=== PATIENT | female | born 1980 ===

== ENCOUNTER 2019-07-01 05:59 | Inpatient (IN) | payer MEDICAID, OTHER ==
[~2019-07-01 05:59] MED LIST: Buffered Lidocaine 1% SYRIN* 1 ML/SYRINGE INTRADERM ONE
[2019-07-01] MEDS ORDERED: Sodium Citrate/Citric Acid* 15 ML UDC PO ONE (06:00)
[2019-07-01] MEDS ORDERED: Lactated Ringers 1000 ML Bag* 1,000 ML IV SCH ×2 (06:00→10:00)
--- OUTSIDE RECORDS SUMMARY | 2019-07-01 06:01 | XMS REPORT | Continuity of Care Document ---
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 [phone] Problems Description No Information Available Social History Type Date Description Comments Sex Unknown Tobacco Use Start: Unknown Never Smoked Cigarettes Smoking Status Reviewed: 02/04/19 Never Smoked Cigarettes ETOH Use Never used alcohol Recreational Drug Use Denies Drug Use Seat Belt/Car Seat Always uses car seat Allergies, Adverse Reactions, Alerts Description No Known Drug Allergies Medications Active Medications SIG Qnty Indications Ordering Provider Date Vitamin Unknown History Medications No Active Medications Unknown 02/04/2019 - 02/09/2019 Immunizations CPT Code Status Date Vaccine Lot # [id number] Given 06/04/2019 Tetnus, Diptheria Toxoids And Acellular Pertussis, [id number] PT > 7Yrs Old Vital Signs Date Vital Result Comment 02/09/2019 9:33am BP Systolic 100 mmHg BP Diastolic 52 mmHg Height 57 inches 4'9" Weight 136.00 lb BMI (Body Mass Index) 29.4 kg/m2 Last Menstrual Period [id number] 3 Parity 2 02/04/2019 2:22pm BP Systolic 122 mmHg BP Diastolic 64 mmHg Weight 139.00 lb Last Menstrual Period 9664984 3 Parity 2 Results Test Acquired Date Facility Test Result H/L Range Note Xray 06/22/2019 [facility] <pending> egnancy >14WKS Laboratory test 05/13/2019 [facility] Glucose 1 HR 115 mg/dL Normal 70-160 1, 2 [place] [address] Post Prandial [phone] CBC With No 05/13/2019 [facility] White Blood 7.2 Normal 3.5- 10.8 [place] [address] Count 10^3/uL [phone] Red Blood Count 3.75 10^6/uL Normal 3.70-4.87 Hemoglobin 11.5 g/dL Low 12.0-16.0 Hematocrit 33 % Low 35-47 Mean Corpuscular Volume 88 fL Normal 80-97 Mean Corpuscular Hemoglobin 31 pg Normal 27-31 Mean Corpuscular HGB Conc 35 g/dL Normal 31-36 Red Cell Distribution Width 14 % Normal 10-15 Platelet Count 289 10^3/uL Normal 150-450 Mean Platelet Volume 7.8 fL Normal 7.4-10.4 Laboratory test 05/13/2019 [facility] Rubella Screen Equivocal Immune [address] [place] [address] IgG [phone] Varicella Zoster 05/13/2019 [facility] Varicella-Zost Positive [address] [place] [address] er IgG [phone] Antibody Varicella IgG Antibody Index 1.7 5 Drug Screen 04/01/2019 [facility] Urine None Detected None Detect 6 [place] [address] Hydrocodone Clinic [phone] Screen Urine Oxycodone Screen None Detected None Detect Urine Fentanyl Screen None Detected None Detect Urine Methadone Screen None Detected None Detect Urine Buprenorphine Screen None Detected None Detect Urine Amphetamine Screen None Detected None Detect Urine Barbiturates Screen None Detected None Detect Urine Benzodiazepine Screen None Detected None Detect Urine Cannabinoids Screen None Detected None Detect Urine Cocaine Screen None Detected None Detect Urine Opiates Screen None Detected None Detect Urine Phencyclidine Screen None Detected None Detect 7 Urine Culture And 03/04/2019 [facility] Urine Culture SEE RESULT 8, 9 [place] [address] BELOW [phone] Laboratory test 02/09/2019 [facility] Cytology SEE RESULT 10, 11 [place] [address] BELOW [phone] GC/Chlamydia Dna 02/09/2019 [facility] GCCHL (SEE NOTE) [address] [place] [address] Disclaimer [phone] Chlamydia trachomatis Ken Negative Negative Neisseria gonorrhoeae (GC) Ken Negative Negative Panorama Test 02/04/2019 [facility] Report Summary See Notes Normal 13 Report Note See Notes Normal Trisomy 13 Age-Based Risk Fraction 03/1209 Normal Trisomy 13 Risk Score Text <1/10,000 (<0.01 <SEE NOTE> Normal 14 Trisomy 13 Risk Score Fraction <1/10516 Normal Trisomy 13 Result Text Low Risk Normal Trisomy 13 Result Comments See Notes Normal Trisomy 18 Age-Based Risk Fraction 1/393 Normal Trisomy 18 Risk Score Text <1/10,000 (<0.01 <SEE NOTE> Normal 15 Trisomy 18 Risk Score Fraction <1/25648 Normal Trisomy 18 Result Text Low Risk Normal Trisomy 18 Result Comments See Notes Normal Trisomy 21 Age-Based Risk Fraction 1/131 Normal Trisomy 21 Risk Score Text <1/10,000 (<0.01 <SEE NOTE> Normal 16 Trisomy 21 Risk Score Fraction <1/46727 Normal Trisomy 21 Result Text Low Risk Normal Trisomy 21 Result Comments See Notes Normal Monosomy X Age-Based Risk Fraction 1/568 Normal Monosomy X Risk Score <0.01 % Normal Monosomy X Risk Score Text <1/10,000 (<0.01 <SEE NOTE> Normal 17 Monosomy X Risk Score Fraction <1/79838 Normal Monosomy X Result Text Low Risk Normal Monosomy X Result Comments See Notes Normal Triploidy Result Text Low Risk Normal Triploidy Result Comments See Notes Normal Gender of Fetus Male Fraction (in %) 8.7 % Fraction 8.7% Footnotes See Notes 18 Boiler Plate Text See Notes 19 References See Notes 20 Approvals See Notes 21 Contacts See Notes 22 Afp,Screen Maternal 02/04/2019 [facility] Collection Date [address] [place] [address] [phone] Maternal Date of 80 Calculated Age At ELYSSA 38 years Maternal Weight 139 lbs Insulin Dependent Diabetes No Current Cigarette Smoking Stat non-Smoker Patient Race non-Black Number of Fetuses 1 Number of Chorions Monochorionic Ivf No Prev Preg w/Neural Tube Defect No Patient/Father of Baby Has NTD No Initial Or Repeat Testing Initial testing ELYSSA by U/S Scan 07/18/19 24 Physician GA On Collection by U/S SEE BELOW wk,d 25 GA Used In Risk Estimate Scan estimate Afp 25.5 ng/mL Interpretation See Comment 26 Additional Comments See Comment 27 Recommended Follow Up None. 28 General Test Information See Comment 29 Recalculated Maternal Serum Sc See Comment 30 Neural Tube Defect Estimate SEE BELOW 31 Afp MoM 0.66 MoM <2.50 32 HIV 1&2 p24 02/04/2019 [facility] HIV 4th Nonreactive Nonreactive Screen [place] [facility] [phone] Lead 02/04/2019 [facility] Lead,Venous, B 1.4 g/dL 0.0-4.9 [address] [place] [address] [phone] Venous/Capillary Venous Submitting Laboratory Phone [phone] Type And Screen 02/04/2019 [facility] Patient [place] [address] [phone] Antibody Screen NEGATIVE CBC With No 02/04/2019 [facility] White Blood 7.2 10^3/uL Normal 3.5-10.8 [place] [address] Count [phone] Red Blood Count 4.16 10^6/uL Normal 3.70-4.87 Hemoglobin 12.9 g/dL Normal 12.0-16.0 Hematocrit 38 % Normal 35-47 Mean Corpuscular Volume 90 fL Normal 80-97 Mean Corpuscular Hemoglobin 31 pg Normal 27-31 Mean Corpuscular HGB Conc 34 g/dL Normal 31-36 Red Cell Distribution Width 14 % Normal 10-15 Platelet Count 333 10^3/uL Normal 150-450 Mean Platelet Volume 7.9 fL Normal 7.4-10.4 PNL No 02/04/2019 [facility] Rubella Screen Equivocal Immune [address] [place] [address] IgG [phone] Hemoglobin A1c 5.3 % Normal 4.0-5.6 36 Hepatitis B Surface Antigen Nonreactive Nonreactive 37 Syphillis Igg W/Reflex RPR Negative Negative 38 1 [id number] 2 [id number] 3 [id number] 4 Results suggest response to immunization or prior exposure to the virus. REFERENCE VALUE Vaccinated: Positive (>=1.1 AI) Unvaccinated: Negative (<=0.8 AI) 5 Test Performed by: [facility] [address] [place] [address] Refinisher: Sampson Felix M.D. Ph.D.; CLIA# [id number] 6 [id number] The specimen was tested at the listed cutoffs: Drug Class Test level (ng/mL) Hydrocodone 300 Oxycodone 100 Fentanyl 1 Methadone 150 Buprenorphine 5 Amphetamines 500 Barbiturates 200 Benzodiazepines 200 Cocaine 150 Cannabinoids 50 Opiates 300 PCP 25 Specimen was received without chain of custody. Results should be used for medical purposes only. 8 [id number] 9 SEE RESULT BELOW Name: CHRISTY LAWRENCE : [address]: Tayo Keane DO Acct: [id number] Unit: [id number] AGE: 38 Location: [facility] Re03/04/19 SEX: F Status: REG REF SPEC: [id number] BETO: 03/04/[address]: Tayo Keane DO REQ: [id number] RECD: 03/04/19 STATUS: COMP _ SOURCE: URINE SPDESC: ORDERED: Urine Culture COMMENTS: [id number] Urine Source: Random Procedure Result Reported Site Urine Culture Final 03/05/19- 1449 ML No Growth (<1,000 CFU/mL) * ML - Main Lab . END OF REPORT DEPARTMENT OF PATHOLOGY, [address] [place] [address] Abdullahi Deng M.D. Director [facility] # [id number] 10 [id number] 11 SEE RESULT BELOW Name: CHRISTY LAWRENCE : [address]: Caroline Grande [facility] Acct: [id number] Unit: [id number] AGE: 38 Location: [facility] Re02/09/19 SEX: F Status: REG REF SPEC: [id number] BETO: 02/09/19-[address]: Caroline Grande [facility] REQ: [id number] RECD: 02/09/19 STATUS: SOUT _ ORDERED: TP IMAGE ANALYS, HPV/Thin Prep COMMENTS: [id number] FINAL DIAGNOSIS Negative for Intraepithelial lesion or Malignancy Shift in melinda suggestive of bacterial vaginosis HPV RESULTS Date Time Test Result Flag (u) Normal Range 02/09/19 1028 HPV KEN Negative Negative The high-risk HPV types detected by the assay include: 16, 18, 31, 33, 35, 39, 45, 51, 52, 56, 58, 59, 66, and 68. SPECIMEN(S) RECEIVED A. Ectocervical/Endocervical CYTOLOGY ADEQUACY Specimen Adequacy: Satisfactory of evaluation Transformation zone component identified CONTINUED ON NEXT PAGE DEPARTMENT OF PATHOLOGY, [address] [place] [address] Abdullahi Deng M.D. Director [facility] # [id number] CYTOLOGY PATIENT INFORMATION Patient Information: HPV: High risk HPV RNA testing regardless of pap results. Actual Specimen Date: 02/09/19 Last Menstrual Date: 10/11/18 ?: Y Signed by and Reported on: TIFFANIE Wood(ASCP) 1527 This Pap test was evaluated with the assistance of the [employer] Test Imaging System. Due to cytologic findings at the lawyer probate microscope, comprehensive manual rescreening by a Auto Body Worker may be required. The Pap Smear is a screening test designed to aid in the detection of premalignant and malignant conditions of the uterine cervix. It is not a diagnostic procedure and should not be used as the sole means of detecting cervical cancer. Both false- positive and false- negative reports do occur. Depending on your risk status, a Pap smear should be obtained and evaluated every 1-3 years. END OF REPORT DEPARTMENT OF PATHOLOGY, [address] [place] [address] Abdullahi Deng M.D. Director [facility] # [id number] 12 As with all diagnostic procedures, the laboratory results obtained should be used in conjunction with other clinical information available to the physician, including confirmation by another method, as applicable. 13 LOW RISK 14 <1/10,000 (<0.01%) 15 <1/10,000 (<0.01%) 16 <1/10,000 (<0.01%) 17 <1/10,000 (<0.01%) 18 Condition tested excludes cases with evidence of and/or placental mosaicism. Prior risk for aneuploidy is based on maternal age and gestational age, where applicable. Panorama risk score is based on a priori risk and results of analysis of circulating placental DNA. Prior risk for microdeletion syndromes, if ordered, are based on overall disease prevalence in the population. This test will not i dentify all deletions associated with each disorder. This test has been validated on full region deletions only and may be unable to detect smaller deletions. 19 Testing Methodology DNA isolated from the maternal blood, which contains placental DNA, is amplified at specific loci using a targeted PCR assay and is sequenced using a high-throughput sequencer. fraction is determi jaye using a proprietary algorithm incorporating data from single nucleotide polymorphism-based (SNP-based) next-generation sequencing [Ariella E et al. Obstet Gynecol. 2014 Oct;124(2 Pt 1):210-8]. If the estimated fraction is ???2.8%, sequencing data is analyzed using a proprietary SNP-based algorithm to determine the copy number for chromosomes 13, 18, 21, X and Y [Piyush Orozco et al. Am J Ob stet Gynecol. 2014 Jan;211(5):527.e1-527.e17]. If ordered, specific microdeletions will be evaluated using similar methodology [Jori ISAAC et al. Am J Obstet Gynecol. 2015 May;212(3):332.e1-9]. If a samp le fails to meet the quality threshold, or the fraction is insufficient , an additional algorithm is utilized to determine whether there is an increased risk for triploidy, trisomy 18 and trisomy 1 3 [Sabine et al. The Human Genetics Conference. [place], [place]. August 11-2016]. However, ???some samples will not produce a result due to failure to meet the necessary quality thresholds. Disclaimers This test has been validated on women with a guerrier, twin or egg donor of at least nine weeks gestation. A result will not be available for higher order multiples and multiple gestation pre gnancies with an egg donor or surrogate, or bone marrow transplant recipients. Complete test panel is not available for twin gestations and pregnancies achieved with an egg donor or surrogate. For twin pregnancies with a fraction value below the threshold for analysis, a sum of the fractions for both twins will be reported. Findings of unknown significance will not be reported. As this ass ay is a screening test and not diagnostic, false positives and false negatives can occur. High risk test results need diagnostic confirmation by alternative testing methods. Low risk results do not full y exclude the diagnosis of any of the syndromes nor do they exclude the possibility of other chromosomal abnormalities or defects, which are not a part of this test. Potential sources of inaccurat e results include, but are not limited to, mosaicism, low fraction, limitations of current diagnostic techniques, or misidentification of samples. This test will not identify all deletions associa nixon with each microdeletion syndrome. This test has been validated on full region deletions only and may be unable to detect smaller deletions. Microdeletion risk score is dependent upon fraction, as deletions on the maternally inherited copy are difficult to identify at lower fractions. Test results should always be interpreted by a clinician in the context of clinical and familial data w ith the availability of genetic counseling when appropriate. The Panorama test was developed by [facility] a laboratory certified under the Clinical Laboratory Improvement Amendments (CLIA). This test has not been cleared or approved by the U.S, Food and Drug Administration (FDA). 20 Please refer to the attached PDF report 21 Test performed by [facility]. [address] [place] [address] CLIA ID #[id number] Tia Pate Ph.D., [facility], Retail Salesman 22 IF THE ORDERING PROVIDER HAS QUESTIONS OR WISHES TO DISCUSS THE RESULTS, PLEASE CONTACT US AT [phone] #[phone]. Ask for the [facility] genetic counselor manager environmental affairs. 23 [id number] REVISED RESULTS PREVIOUSLY REPORTED 08/05/19 (Reported 02/09/2019 16:45) CORRECTED REPORT --- Corrected on 02/10/19 1736 --- ELYSSA by U/S Scan previously reported as: 08/05/19 25 RESULT: 16,4 REVISED RESULTS PREVIOUSLY REPORTED 14,0 (Reported 02/09/2019 16:45) CORRECTED REPORT --- Corrected on 02/10/191735 --- GA By Scan previously reported as: SEE BELOW wk,d RESULT: 14,0 26 RESULT: Screen negative for neural tube defects. REVISED RESULTS PREVIOUSLY REPORTED Sample drawn too early. (Reported 02/09/2019 16:45) CORRECTED REPORT --- Corrected on 02/10/191735 --- Interpretation previously reported as: See Comment RESULT: Sample drawn too early. 27 RESULT: Reviewed by Tisha Nicole,Ph.D. 28 REVISED RESULTS PREVIOUSLY REPORTED First-trimester screening is available between 10,0 and 13,6 (weeks,days), which corresponds to CRL measurements between 31 and 80 mm. Second-trimester screening for Down syndrome and trisomy 18 is available between 14,0 and 22,6. Screening for neural tube defects is available between 15,0 and 22,6. (Reported 02/09/2019 16:45) CORRECTED REPORT --- Corrected on 02/10/191735 --- Follow Up previously reported as: See Comment First-trimester screening is available between 10,0 and 13,6 (weeks,days), which corresponds to CRL measurements between 31 and 80 mm. Second-trimester screening for Down syndrome and trisomy 18 is available between 14,0 and 22,6. Screening for neural tube defects is available between 15,0 and 22,6. 29 This screening provides an estimation of risk, not a diagnosis. Incorrect or incomplete information may significantly alter results. Results may be unreliable in twin pregnancies with a demise. Results are not available for pregnancies with triplets and higher-order multiples. A positive result occurs when the AFP MoM equals or exceeds 2.5. Screen results and family history influence individual risk. If there is a family history of a neural tube defect, chromosome abnormality, or other inherited condition, consider the option of a genetic consultation. For further information, please contact the maternal screening laboratory at . ADDITIONAL INFORMATION This test was developed and its performance characteristics determined by [facility] in a manner consistent with CLIA requirements. This test has not been cleared or approved by the U.S. Food and Drug Administration. Test Performed by: [facility] [place] [address] Refinisher: Sampson Felix M.D. Ph.D.; CLIA# [id number] 30 REVISED RESULTS This is a corrected version of the report produced on 02/09/19. PREVIOUSLY REPORTED DNR (Reported 02/09/2019 16:45) 31 RESULT: REVISED RESULTS PREVIOUSLY REPORTED DNR (Reported 02/09/2019 16:45) 32 REVISED RESULTS PREVIOUSLY REPORTED DNR (Reported 02/09/2019 16:45) 33 ADDITIONAL INFORMATION Testing performed by Inductively Coupled Plasma-Mass Spectrometry (ICP-MS). This test was developed and its performance characteristics determined by [facility] in a manner consistent with CLIA requirements. This test has not been cleared or approved by the U.S. Food and Drug Administration. 34 Test Performed by: [facility] [address] [place] [address] Refinisher: Sampson Felix M.D. Ph.D.; IA# [id number] 35 [id number] 36 Therapeutic target for the treatment of diabetes mellitus patients is <7% HBA1C, and in selective patients <6.0%. Please refer to [place] [employer] diabetic care guidelines for further information. 37 [id number] 38 [id number] Procedures Date Code Description Status 06/22/2019 37412 Biophysical Profile Without Non Stress Test Completed 06/22/2019 20809 Echography Uterus Follow-Up Or Repeat Completed 05/28/2019 95076 Biophysical Profile Without Non Stress Test Completed 05/28/2019 56001 Ultrasound,Transvaginal Completed 05/28/2019 08697 Echography Uterus Follow-Up Or Repeat Completed 04/29/2019 48073 Echography Uterus Follow-Up Or Repeat Completed 03/04/2019 21698 Echography Uterus Complete Completed 02/04/2019 96218 Echography Uterus Limited Completed Medical Devices Description No Information Available Encounters Type Date Location Provider Dx Diagnosis Office Visit 02/04/2019 [facility] Tayo Keane JR, DO O26.92 related 3:45p conditions, unspecified, second trimester O44.42 Low lying placenta NOS or without hemor, second trimester Assessments Date Code Description Provider 06/22/2019 O44.23 Partial placenta previa NOS or without Shanna Sanchez MD hemorrhage, third trimester 06/22/2019 O44.23 Partial placenta previa NOS or without Janis Esteban CNM hemorrhage, third trimester 06/22/2019 O09.523 Supervision of elderly multigravida, Shanna Sanchez MD third trimester 06/22/2019 O44.23 Partial placenta previa NOS or without Ultrasounds hemorrhage, third trimester 06/22/2019 O09.523 Supervision of elderly multigravida, Ultrasounds third trimester 06/04/2019 O44.23 Partial placenta previa NOS or without Shanna Sanchez MD hemorrhage, third trimester 06/04/2019 O09.523 Supervision of elderly multigravida, Shanna Sanchez MD third trimester 06/04/2019 Z23 Encounter for immunization Shanna Sanchez MD 05/28/2019 O44.13 Complete placenta previa with hemorrhage, Rian Gilliam M.D. third trimester 05/28/2019 O44.23 Partial placenta previa NOS or without Rian Gilliam M.D. hemorrhage, third trimester 05/28/2019 O09.523 Supervision of elderly multigravida, Rian Gilliam M.D. third trimester 05/28/2019 O44.13 Complete placenta previa with hemorrhage, Ultrasounds third trimester 05/28/2019 O09.523 Supervision of elderly multigravida, Ultrasounds third trimester 05/13/2019 Z36.9 Encounter for screening, Rian Gilliam M.D. unspecified 05/13/2019 Z36.9 Encounter for screening, Laboratory unspecified 04/29/2019 O09.522 Supervision of elderly multigravida, Rian Gilliam M.D. second trimester 04/29/2019 O44.22 Partial placenta previa NOS or without Rian Gilliam M.D. hemorrhage, second trimester 04/29/2019 O44.22 Partial placenta previa NOS or without Rian Gilliam M.D. hemorrhage, second trimester 04/29/2019 O09.522 Supervision of elderly multigravida, Ultrasounds second trimester 04/29/2019 O44.22 Partial placenta previa NOS or without Ultrasounds hemorrhage, second trimester 04/01/2019 O09.522 Supervision of elderly multigravida, Gabriela Coronado CNM second trimester 03/04/2019 Z36.3 Encounter for screening for Tayo Keane JR, DO malformations 03/04/2019 O44.22 Partial placenta previa NOS or without Tayo Keane JR, DO hemorrhage, second trimester 03/04/2019 Z36.3 Encounter for screening for Ultrasounds malformations 02/09/2019 O09.522 Supervision of elderly multigravida, Caroline Grande CNM second trimester 02/04/2019 Z34.82 Encounter for supervision of other normal Tayo Keane JR , DO , second trimester 02/04/2019 O26.92 related conditions, Tayo Keane JR, DO unspecified, second trimester 02/04/2019 Z34.82 Encounter for supervision of other normal Ultrasounds , second trimester 02/04/2019 O44.42 Low lying placenta NOS or without Tayo Keane JR, DO hemorrhage, second trimester Plan of Treatment Future Appointment(s):06/26/2019 8:20 am - Rian Gilliam M.D. at [facility]02/04/2019 - Tayo Keane JR, DOZ34.82 Encounter for supervision of other normal , second caujfyqoiQ64.92 related conditions, unspecified, second trimesterComments:SIUP at 16w4d, no care to dateHx of x 2, uncomplicatedWill collect all labs today including NIPT and MSAFPRTO for complete NOB ASAPUSN WNL with the exception of a low lying placenta - re-assess at 28 weeks for nawzspkadwU36.42 Low lying placenta NOS or without hemorrhage, second trimesterComments:LLP/Marginal Previare-assess at 28 weeks for resolutionPelvic rest advisedBleeding precautions carefully reviewed Functional Status Description No Information Available Mental Status Description No Information Available Referrals Description No Information Available
--- OUTSIDE RECORDS SUMMARY | 2019-07-01 06:01 | XMS REPORT | Continuity of Care Document ---
:1980 External Reference #:[id number] Author Name Janis Esteban CNM Address [address] [place] [address] Care Team Providers Name Role Phone [facility] [place] Care Team Information Public Health Registrar [phone] Problems Description No Information Available Social History [...] CPT Code Status Date Vaccine Lot # [id number] Given 06/04/2019 Tetnus, Diptheria Toxoids And Acellular Pertussis, [id number] PT > 7Yrs Old Vital Signs Date Vital Result Comment 02/09/2019 9:33am BP Systolic 100 mmHg BP Diastolic 52 mmHg Height 57 inches 4'9" Weight 136.00 lb BMI (Body Mass Index) 29.4 kg/m2 Last Menstrual Period 2771997 3 Parity 2 02/04/2019 2:22pm BP Systolic 122 mmHg BP Diastolic 64 mmHg Weight 139.00 lb Last Menstrual Period 2166817 3 Parity 2 Results Test Acquired Date Facility Test Result H/L Range Note Xray 06/22/2019 [facility] <pending> egnancy >14WKS Laboratory test 05/13/2019 [facility] Glucose 1 HR 115 mg/dL Normal 70-160 1, 2 [place] [address] Post Prandial [phone] CBC With No 05/13/2019 [facility] White Blood 7.2 Normal 3.5- 10.8 [place] [address] Count 10^3/uL [phone] Red Blood Count 3.75 10^6/uL Normal 3.70-4.87 Hemoglobin 11.5 g/dL Low 12.0-16.0 Hematocrit 33 % Low 35-47 Mean Corpuscular Volume 88 fL Normal 80-97 Mean Corpuscular Hemoglobin 31 pg Normal 27-31 Mean Corpuscular HGB Conc 35 g/dL Normal 31-36 Red Cell Distribution Width 14 % Normal 10-15 Platelet Count 289 10^3/uL Normal 150-450 Mean Platelet Volume 7.8 fL Normal 7.4-10.4 Laboratory test 05/13/2019 [facility] Rubella Screen Equivocal Immune 3 [place] [address] IgG [phone] Varicella Zoster 05/13/2019 [facility] Varicella-Zost Positive 4 [place] [address] er IgG [phone] Antibody Varicella IgG Antibody Index 1.7 5 Drug Screen 04/01/2019 [facility] Urine None Detected None Detect 6 [place] [address] Hydrocodone Clinic [phone] Screen Urine Oxycodone Screen None Detected None [...] None Detect 7 Urine Culture And 03/04/2019 [facility] Urine Culture SEE RESULT 8, 9 [place] [address] BELOW [phone] Laboratory test 02/09/2019 [facility] Cytology SEE RESULT 10, 11 [place] [address] BELOW [phone] GC/Chlamydia Dna 02/09/2019 [facility] GCCHL (SEE NOTE) 12 [place] [address] Disclaimer [phone] Chlamydia trachomatis Ken Negative Negative Neisseria gonorrhoeae (GC) Ken Negative Negative Panorama Test 02/04/2019 [facility] Report Summary See Notes Normal 13 Report Note See Notes Normal Trisomy 13 Age-Based Risk Fraction 03/1209 Normal Trisomy 13 Risk Score Text <1/10,000 (<0.01 <SEE NOTE> Normal 14 Trisomy 13 Risk Score Fraction <1/59148 Normal Trisomy 13 Result Text Low Risk Normal Trisomy 13 Result Comments See Notes Normal Trisomy 18 Age-Based Risk Fraction 1/393 Normal Trisomy 18 Risk Score Text <1/10,000 (<0.01 <SEE NOTE> Normal 15 Trisomy 18 Risk Score Fraction <1/46341 Normal Trisomy 18 Result Text Low Risk Normal Trisomy 18 Result Comments See Notes Normal Trisomy 21 Age-Based Risk Fraction 1/131 Normal Trisomy 21 Risk Score Text <1/10,000 (<0.01 <SEE NOTE> Normal 16 Trisomy 21 Risk Score Fraction <1/19411 Normal Trisomy 21 Result Text Low Risk Normal Trisomy 21 Result Comments See Notes Normal Monosomy X Age-Based Risk Fraction 1/568 Normal Monosomy X Risk Score <0.01 % Normal Monosomy X Risk Score Text <1/10,000 (<0.01 <SEE NOTE> Normal 17 Monosomy X Risk Score Fraction <1/89540 Normal Monosomy X Result Text Low Risk Normal Monosomy X Result Comments See Notes Normal Triploidy Result Text Low Risk Normal Triploidy Result Comments See Notes Normal Gender of Fetus Male Fraction (in %) 8.7 % Fraction 8.7% Footnotes See Notes 18 Boiler Plate Text See Notes 19 References See Notes 20 Approvals See Notes 21 Contacts See Notes 22 Afp,Screen Maternal 02/04/2019 [facility] Collection Date [address] [place] [address] [phone] Maternal Date of 80 Calculated Age At [...] MoM <2.50 32 HIV 1&2 p24 02/04/2019 [facility] HIV 4th [place] [address] Generation [phone] Lead 02/04/2019 [facility] Lead,Venous, B 1.4 g/dL 0.0-4.9 33 [place] [address] [phone] Venous/Capillary Venous Submitting Laboratory Phone [phone] Type And Screen 02/04/2019 [facility] Patient [place] [address] [phone] Antibody Screen NEGATIVE CBC With No 02/04/2019 [facility] White Blood 7.2 10^3/uL Normal 3.5-10.8 [place] [address] Count [phone] Red Blood Count 4.16 10^6/uL Normal 3.70-4.87 Hemoglobin 12.9 g/dL Normal 12.0-16.0 Hematocrit 38 % Normal 35-47 Mean Corpuscular Volume 90 fL Normal 80-97 Mean Corpuscular Hemoglobin 31 pg Normal 27-31 Mean Corpuscular HGB Conc 34 g/dL Normal 31-36 Red Cell Distribution Width 14 % Normal 10-15 Platelet Count 333 10^3/uL Normal 150-450 Mean Platelet Volume 7.9 fL Normal 7.4-10.4 PNL No 02/04/2019 [facility] Rubella Screen Equivocal Immune 35 [place] [address] IgG [phone] Hemoglobin A1c 5.3 % Normal 4.0-5.6 36 Hepatitis B Surface Antigen Nonreactive Nonreactive 37 Syphillis Igg W/Reflex RPR Negative Negative 38 1 [id number] 2 [id number] 3 [id number] 4 Results suggest response to immunization or prior exposure to the virus. REFERENCE VALUE Vaccinated: Positive (>=1.1 AI) Unvaccinated: Negative (<=0.8 AI) 5 Test Performed by: [facility] [employer] [facility] [address] [place] [address] Roller Inspector: Sampson Felix M.D. Ph.D.; CLIA# [id number] The specimen was tested at the listed cutoffs: Drug Class Test level (ng/mL) Hydrocodone 300 Oxycodone 100 Fentanyl 1 Methadone 150 Buprenorphine 5 Amphetamines 500 Barbiturates 200 Benzodiazepines 200 Cocaine 150 Cannabinoids 50 Opiates 300 PCP 25 Specimen was received without chain of custody. Results should be used for medical purposes only. 8 [id number] 9 SEE RESULT BELOW Name: CHRISTY LAWRENCE : [address]: Tayo Keane DO Acct: [id number] Unit: [id number] AGE: 38 Location: [facility] Re03/04/19 SEX: F Status: REG REF SPEC: [id number] BETO: 03/04/[address]: Tayo Keane DO REQ: [id number] RECD: 03/04/19 STATUS: COMP _ SOURCE: URINE SPDESC: ORDERED: Urine Culture COMMENTS: [id number] Urine Source: Random Procedure Result Reported Site Urine Culture Final 03/05/19- 1449 ML No Growth (<1,000 CFU/mL) * ML - Main Lab . END OF REPORT DEPARTMENT OF PATHOLOGY, [address] [place] [address] Abdullahi Deng M.D. Director [facility] # [id number] 10 [id number] SEE RESULT BELOW Name: CHRISTY LAWRENCE : [address]: Caroline Grande [facility] Acct: [id number] Unit: [id number] AGE: 38 Location: [facility] Re02/09/19 SEX: F Status: REG REF SPEC: [id number] BETO: 02/09/19-[address]: Caroline Grande [facility] REQ: [id number] RECD: 02/09/19 STATUS: SOUT _ ORDERED: TP IMAGE ANALYS, HPV/Thin Prep COMMENTS: [id number] FINAL DIAGNOSIS Negative for Intraepithelial lesion or [...] CONTINUED ON NEXT PAGE DEPARTMENT OF PATHOLOGY, [address] [place] [address] Abdullahi Deng M.D. Director [facility] # [id number] CYTOLOGY PATIENT INFORMATION Patient Information: HPV: High risk HPV RNA testing regardless of pap results. Actual Specimen Date: 02/09/19 Last Menstrual Date: 10/11/18 ?: Y Signed by and Reported on: TIFFANIE Wood(ASCP) 1527 This Pap test was evaluated with the assistance of the [employer]ia BiosciencesPrep Test Imaging System. Due to cytologic findings at the bass mechanism maker microscope, comprehensive manual rescreening by a Legal Summer Intern may be required. The Pap Smear is [...] years. END OF REPORT DEPARTMENT OF PATHOLOGY, [address] [place] [address] Abdullahi Deng M.D. Director [facility] # [id number] 12 As with all diagnostic procedures, the [...] [Sabine et al. The Human [employer]etics Conference. [place], [place]. August 11-2016]. However, ???some samples will not [...] appropriate. The Panorama test was developed by [facility] a laboratory certified under the Clinical Laboratory Improvement Amendments (CLIA). This test has not been cleared or approved by the U.S, Food and Drug Administration (FDA). 20 Please refer to the attached PDF report 21 Test performed by [facility]. [address] [place] [address] CLIA ID #[id number] Tia Pate Ph.D., [facility], Absorption Plant Operator Helper 22 IF THE ORDERING PROVIDER HAS QUESTIONS OR WISHES TO DISCUSS THE RESULTS, PLEASE CONTACT US AT [phone] #3. Ask for the NIPT genetic counselor universal branch consultant. 23 [id number] 24 REVISED RESULTS PREVIOUSLY REPORTED 08/05/19 (Reported [...] developed and its performance characteristics determined by [facility] in a manner consistent with CLIA requirements. This test has not been cleared or approved by the U.S. Food and Drug Administration. Test Performed by: [place] [address] Roller Inspector: Sampson Felix M.D. Ph.D.; CLIA# [id number] 30 REVISED RESULTS This is a corrected version of the report produced on 02/09/19. PREVIOUSLY REPORTED DNR (Reported 02/09/2019 16:45) 31 RESULT: REVISED RESULTS PREVIOUSLY REPORTED DNR (Reported 02/09/2019 16:45) 32 REVISED RESULTS PREVIOUSLY REPORTED DNR (Reported 02/09/2019 16:45) 33 ADDITIONAL INFORMATION Testing performed by Inductively Coupled Plasma-Mass Spectrometry (ICP-MS). This test was developed and its performance characteristics determined by [facility] in a manner consistent with CLIA requirements. This test has not been cleared or approved by the U.S. Food and Drug Administration. 34 Test Performed by: [facility] [address] [place] [address] Roller Inspector: Sampson Felix M.D. Ph.D.; CLIA# [id number] 35 [id number] 36 Therapeutic target for the treatment of diabetes mellitus patients is <7% HBA1C, and in selective patients <6.0%. Please refer to [place] [employer] diabetic care guidelines for further information. 37 [id number] 38 [id number] Procedures Date Code Description Status 06/22/2019 47958 Biophysical Profile Without Non Stress Test Completed 06/22/2019 27290 Echography Uterus Follow-Up Or Repeat Completed 05/28/2019 08636 Biophysical Profile Without Non Stress Test Completed 05/28/2019 28429 Ultrasound,Transvaginal Completed 05/28/2019 46144 Echography Uterus Follow-Up Or Repeat Completed 04/29/2019 45208 Echography Uterus Follow-Up Or Repeat Completed 03/04/2019 85583 Echography Uterus Complete Completed 02/04/2019 73155 Echography Uterus Limited Completed Medical Devices Description No Information Available Encounters Type Date Location Provider Dx Diagnosis Office Visit 02/04/2019 [facility] Tayo Keane JR, DO O26.92 related 3:45p conditions, unspecified, second trimester O44.42 Low lying placenta NOS or without hemor, second trimester Assessments Date Code Description Provider 06/22/2019 O44.23 Partial placenta previa NOS or without Janis Esteban CNM hemorrhage, third trimester 06/22/2019 O44.23 Partial placenta [...] Partial placenta previa NOS or without Tayo Lakhwinder JR, DO hemorrhage, second trimester 03/04/2019 Z36.3 Encounter for screening for Ultrasounds malformations 02/09/2019 O09.522 Supervision of elderly multigravida, Caroline Grande , ALEX second trimester 02/04/2019 Z34.82 Encounter for supervision of other normal Tayo Keane JR , DO , second trimester 02/04/2019 O26.92 related conditions, Tayo Keane JR, DO unspecified, second trimester 02/04/2019 Z34.82 Encounter for supervision of other normal Ultrasounds , second trimester 02/04/2019 O44.42 Low lying placenta NOS or without Tayo Lakhwinder JR, DO hemorrhage, second trimester Plan of Treatment Future Appointment(s):06/26/2019 8:20 am - Rian Gilliam M.D. at [facility]02/04/2019 - Tayo Keane JR, DOZ34.82 Encounter for supervision of other normal , second ltrxkpgrzG97.92 related conditions, unspecified, second trimesterComments:SIUP at 16w4d, no care to dateHx of x 2, uncomplicatedWill collect all labs today including NIPT and MSAFPRTO for complete NOB ASAPUSN WNL with the exception of a low lying placenta - re-assess at 28 weeks for wvkfswjpwnB89.42 Low lying placenta NOS or without hemorrhage, second trimesterComments:LLP/Marginal Previare-assess at 28 weeks for resolutionPelvic rest advisedBleeding precautions carefully reviewed Functional Status Description No Information Available Mental Status Description No Information Available Referrals Description No Information Available
--- OUTSIDE RECORDS SUMMARY | 2019-07-01 06:01 | XMS REPORT | Continuity of Care Document ---
:1980 External Reference #:[id number] Author Name Oralia Ross MD (transmitted by agent of provider Sandy [place]) Address [address] [place] [address] Care Team Providers Name Role Phone [facility] - [facility] Care Team Information Shuttle Spotter [phone] Problems Description No Information Available Social History Type Date Description Comments Sex Unknown Tobacco Use Start: Unknown Never Smoked Cigarettes ETOH Use Never used alcohol Recreational Drug Use Denies Drug Use Tobacco Use Start: Unknown Patient has never smoked Smoking Status Reviewed: 06/26/19 Patient has never smoked Seat Belt/Car Seat Always uses car seat Allergies, Adverse Reactions, Alerts Description No Known Drug Allergies Medications Active Medications SIG Qnty Indications Ordering Provider Date Vitamin Unknown History Medications No Active Medications Unknown 02/04/2019 - 02/09/2019 Medications Administered in Office Medication SIG Qnty Indications Ordering Provider Date PT SCRN Tbco Id as Non User Oralia Ross MD 06/26/2019 Injection Immunizations CPT Code Status Date Vaccine Lot # [id number] Given 06/04/2019 Tetnus, Diptheria Toxoids And Acellular Pertussis, [id number] PT > 7Yrs Old Vital Signs Date Vital Result Comment 06/26/2019 11:12am BP Systolic 112 mmHg BP Diastolic 72 mmHg Body Temperature 97.5 F Heart Rate 70 /min Respiratory Rate 18 /min Height 57 inches 4'9" Weight 156.00 lb BMI (Body Mass Index) 33.8 kg/m2 3 Parity 2 02/09/2019 9:33am BP Systolic 100 mmHg BP Diastolic 52 mmHg Height 57 inches 4'9" Weight 136.00 lb BMI (Body Mass Index) 29.4 kg/m2 Last Menstrual Period [id number] 3 Parity 2 Results Test Acquired Date Facility Test Result H/L Range Note CBC Auto 06/29/2019 [facility] White Blood 6.5 10^3/uL Normal 3.5-10.8 [place] [address] Count [phone] Red Blood Count 4.23 10^6/uL Normal 3.70-4.87 Hemoglobin 12.7 g/dL Normal 12.0-16.0 Hematocrit 36 % Normal 35-47 Mean Corpuscular Volume 84 fL Normal 80-97 Mean Corpuscular Hemoglobin 30 pg Normal 27-31 Mean Corpuscular HGB Conc 36 g/dL Normal 31-36 Red Cell Distribution Width 14 % Normal 10-15 Platelet Count 312 10^3/uL Normal 150-450 Mean Platelet Volume 7.5 fL Normal 7.4-10.4 Abs Neutrophils 4.8 10^3/uL Normal 1.5-7.7 Abs Lymphocytes 1.3 10^3/uL Normal 1.0-4.8 Abs Monocytes 0.3 10^3/uL Normal 0-0.8 Abs Eosinophils 0.1 10^3/uL Normal 0-0.6 Abs Basophils 0.0 10^3/uL Normal 0-0.2 Abs Nucleated RBC 0.0 10^3/uL Granulocyte % 73.6 % Lymphocyte % 19.8 % Monocyte % 5.3 % Eosinophil % 1.1 % Basophil % 0.2 % Nucleated Red Blood Cells % 0.0 Type And Screen 06/29/2019 [facility] Patient [place] [address] [phone] Antibody Screen NEGATIVE Xray 06/22/2019 [facility], <pending> >14WKS Laboratory 05/13/2019 [facility] Glucose 1 HR Post 115 mg/dL Normal 70- 1, 2 [place] [address] Prandial 160 [phone] CBC With No 05/13/2019 [facility] White Blood Count 7.2 10^3/uL Normal 3.5 [place] [address] -10 [phone] Red Blood Count 3.75 10^6/uL Normal 3.70-4.87 Hemoglobin 11.5 g/dL Low 12.0-16.0 Hematocrit 33 % Low 35-47 Mean Corpuscular Volume 88 fL Normal 80-97 Mean Corpuscular Hemoglobin 31 pg Normal 27-31 Mean Corpuscular HGB Conc 35 g/dL Normal 31-36 Red Cell Distribution Width 14 % Normal 10-15 Platelet Count 289 10^3/uL Normal 150-450 Mean Platelet Volume 7.8 fL Normal 7.4-10.4 Laboratory test 05/13/2019 [facility] Rubella Screen Equivocal Immune 3 [place] [address] IgG [phone] Varicella Zoster 05/13/2019 [facility] Varicella-Zost Positive 4 [place] [address] er IgG [phone] Antibody Varicella IgG Antibody Index 1.7 5 Drug Screen 04/01/2019 [facility] Urine None Detected None Detect 6 [place] [address] Hydro[facility] Clinic [phone] Screen Urine Oxycodone Screen None Detected None [...] None Detect 7 Urine Culture And 03/04/2019 [facility] Urine Culture SEE RESULT 8, 9 [place] [address] BELOW [phone] Laboratory test 02/09/2019 [facility] Cytology SEE RESULT 10, 11 [place] [address] BELOW [phone] GC/Chlamydia Dna 02/09/2019 [facility] GCCHL (SEE NOTE) 12 [place] [address] Disclaimer [phone] Chlamydia trachomatis Ken Negative Negative Neisseria gonorrhoeae (GC) Ken Negative Negative Panorama Test 02/04/2019 [facility] Report Summary See Notes Normal 13 Report Note See Notes Normal Trisomy 13 Age-Based Risk Fraction 03/1209 Normal Trisomy 13 Risk Score Text <1/10,000 (<0.01 <SEE NOTE> Normal 14 Trisomy 13 Risk Score Fraction <1/89743 Normal Trisomy 13 Result Text Low Risk Normal Trisomy 13 Result Comments See Notes Normal Trisomy 18 Age-Based Risk Fraction 1393 Normal Trisomy 18 Risk Score Text <1/10,000 (<0.01 <SEE NOTE> Normal 15 Trisomy 18 Risk Score Fraction <1/24706 Normal Trisomy 18 Result Text Low Risk Normal Trisomy 18 Result Comments See Notes Normal Trisomy 21 Age-Based Risk Fraction 1/131 Normal Trisomy 21 Risk Score Text <1/10,000 (<0.01 <SEE NOTE> Normal 16 Trisomy 21 Risk Score Fraction <1/54645 Normal Trisomy 21 Result Text Low Risk Normal Trisomy 21 Result Comments See Notes Normal Monosomy X Age-Based Risk Fraction 1/568 Normal Monosomy X Risk Score <0.01 % Normal Monosomy X Risk Score Text <1/10,000 (<0.01 <SEE NOTE> Normal 17 Monosomy X Risk Score Fraction <1/98038 Normal Monosomy X Result Text Low Risk Normal Monosomy X Result Comments See Notes Normal Triploidy Result Text Low Risk Normal Triploidy Result Comments See Notes Normal Gender of Fetus Male Fraction (in %) 8.7 % Fraction 8.7% Footnotes See Notes 18 Boiler Plate Text See Notes 19 References See Notes 20 Approvals See Notes 21 Contacts See Notes 22 Afp,Screen Maternal 02/04/2019 [facility] Collection Date [address] [place] [address] [phone] Maternal Date of 80 Calculated Age At [...] MoM <2.50 32 HIV 1&2 p24 02/04/2019 [facility] HIV 4th Nonreactive [place] [address] Generation [phone] Lead 02/04/2019 [facility] Lead,Venous, B 1.4 g/dL 0.0-4.9 [address] [place] [address] [phone] Venous/Capillary Venous Submitting Laboratory Phone [phone] Type And Screen 02/04/2019 [facility] Patient [place] [address] [phone] Antibody Screen NEGATIVE CBC With No 02/04/2019 [facility] White Blood 7.2 10^3/uL Normal 3.5-10.8 [place] [address] Count [phone] Red Blood Count 4.16 10^6/uL Normal 3.70-4.87 Hemoglobin 12.9 g/dL Normal 12.0-16.0 Hematocrit 38 % Normal 35-47 Mean Corpuscular Volume 90 fL Normal 80-97 Mean Corpuscular Hemoglobin 31 pg Normal 27-31 Mean Corpuscular HGB Conc 34 g/dL Normal 31-36 Red Cell Distribution Width 14 % Normal 10-15 Platelet Count 333 10^3/uL Normal 150-450 Mean Platelet Volume 7.9 fL Normal 7.4-10.4 PNL No 02/04/2019 [facility] Rubella Screen Equivocal Immune 35 [place] [address] IgG [phone] Hemoglobin A1c 5.3 % Normal 4.0-5.6 36 Hepatitis B Surface Antigen Nonreactive Nonreactive 37 Syphillis Igg W/Reflex RPR Negative Negative 38 1 [id number] 2 [id number] 3 [id number] 4 Results suggest response to immunization or prior exposure to the virus. REFERENCE VALUE Vaccinated: Positive (>=1.1 AI) Unvaccinated: Negative (<=0.8 AI) 5 Test Performed by: [facility] [employer] [facility] [address] [place] [address] Mold Repair Technician: Sampson Felix M.D. Ph.D.; CLIA# [id number] 6 [id number] 7 The specimen was tested at the listed cutoffs: Drug Class Test level (ng/mL) Hydrocodone 300 Oxycodone 100 Fentanyl 1 Methadone 150 Buprenorphine 5 Amphetamines 500 Barbiturates 200 Benzodiazepines 200 Cocaine 150 Cannabinoids 50 Opiates 300 PCP 25 Specimen was received without chain of custody. Results should be used for medical purposes only. 8 [id number] 9 SEE RESULT BELOW Name: CHRISTY LAWRENCE : [address]: Tayo Keane DO Acct: [id number] Unit: [id number] AGE: 38 Location: [facility] Re03/04/19 SEX: F Status: REG REF SPEC: [id number] BETO: 03/04/[address]: Tayo Keane DO REQ: [id number] RECD: 03/04/19 STATUS: COMP _ SOURCE: URINE SPDESC: ORDERED: Urine Culture COMMENTS: [id number] Urine Source: Random Procedure Result Reported Site Urine Culture Final 03/05/19- 1449 ML No Growth (<1,000 CFU/mL) * ML - Main Lab . END OF REPORT DEPARTMENT OF PATHOLOGY, [address] [place] [address] Abdullahi Deng M.D. Director [facility] # [id number] 10 [id number] 11 SEE RESULT BELOW Name: CHRISTY LAWRENCE : [address]: Caroline Grande [place] Acct: [id number] Unit: [id number] AGE: 38 Location: [facility] Re02/09/19 SEX: F Status: REG REF SPEC: [id number] BETO: 02/09/19-[address]: Caroline Grande [facility] REQ: [id number] RECD: 02/09/19 STATUS: SOUT _ ORDERED: TP IMAGE ANALYS, HPV/Thin Prep COMMENTS: [id number] FINAL DIAGNOSIS Negative for Intraepithelial lesion or [...] CONTINUED ON NEXT PAGE DEPARTMENT OF PATHOLOGY, [address] [place] [address] Abdullahi Deng M.D. Director [facility] # [id number] CYTOLOGY PATIENT INFORMATION Patient Information: HPV: High risk HPV RNA testing regardless of pap results. Actual Specimen Date: 02/09/19 Last Menstrual Date: 10/11/18 ?: Y Signed by and Reported on: TIFFANIE Wood(ASCP) 1527 This Pap test was evaluated with the assistance of the NimbitPrep Test Imaging System. Due to cytologic findings at the cord maker microscope, comprehensive manual rescreening by a Field Service Consultant may be required. The Pap Smear is [...] years. END OF REPORT DEPARTMENT OF PATHOLOGY, [address] [place] [address] Abdullahi Deng M.D. Director [facility] # [id number] 12 As with all diagnostic procedures, the [...] [Sabine et al. The [employer] Conference. [place], [place]. August 11-2016]. However, ???some samples will not [...] appropriate. The Panorama test was developed by [facility] a laboratory certified under the Clinical Laboratory Improvement Amendments (CLIA). This test has not been cleared or approved by the U.S, Food and Drug Administration (FDA). 20 Please refer to the attached PDF report 21 Test performed by [facility]. [address] [place] [address] CLIA ID #[id number] Tia Pate Ph.D., [facility], Die Tester 22 IF THE ORDERING PROVIDER HAS QUESTIONS OR WISHES TO DISCUSS THE RESULTS, PLEASE CONTACT US AT [phone] #3. Ask for the [facility] genetic counselor marionette performer. 23 [id number] 24 REVISED RESULTS PREVIOUSLY REPORTED 08/05/19 (Reported 02/09/2019 16:45) CORRECTED REPORT --- Corrected on 02/10/191735 --- ELYSSA by U/S Scan previously reported [...] developed and its performance characteristics determined by [facility] in a manner consistent with CLIA requirements. This test has not been cleared or approved by the U.S. Food and Drug Administration. Test Performed by: [place] [address] Mold Repair Technician: Sampson Felix M.D. Ph.D.; CLIA# [id number] 30 REVISED RESULTS This is a corrected version of the report produced on 02/09/19. PREVIOUSLY REPORTED DNR (Reported 02/09/2019 16:45) 31 RESULT: REVISED RESULTS PREVIOUSLY REPORTED DNR (Reported 02/09/2019 16:45) 32 REVISED RESULTS PREVIOUSLY REPORTED DNR (Reported 02/09/2019 16:45) 33 ADDITIONAL INFORMATION Testing performed by Inductively Coupled Plasma-Mass Spectrometry (ICP-MS). This test was developed and its performance characteristics determined by [facility] in a manner consistent with CLIA requirements. This test has not been cleared or approved by the U.S. Food and Drug Administration. 34 Test Performed by: [place] [address] Mold Repair Technician: Sampson Felix M.D. Ph.D.; CLIA# [id number] 35 [id number] 36 Therapeutic target for the treatment of diabetes mellitus patients is <7% HBA1C, and in selective patients <6.0%. Please refer to [employer] diabetic care guidelines for further information. 37 [id number] 38 [id number] Procedures Date Code Description Status 06/22/2019 89087 Biophysical Profile Without Non Stress Test Completed 06/22/2019 73489 Echography Uterus Follow-Up Or Repeat Completed 05/28/2019 44040 Biophysical Profile Without Non Stress Test Completed 05/28/2019 91094 Ultrasound,Transvaginal Completed 05/28/2019 39341 Echography Uterus Follow-Up Or Repeat Completed 04/29/2019 90686 Echography Uterus Follow-Up Or Repeat Completed 03/04/2019 63285 Echography Uterus Complete Completed 02/04/2019 64900 Echography Uterus Limited Completed Medical Devices Description No Information Available Encounters Type Date Location Provider Dx Diagnosis Office Visit 06/26/2019 [facility] Oralia Ross, O44.23 Partial placenta 11:00a MD previa NOS or without hemor, third tri O09.523 Supervision of elderly multigravida, third trimester Z01.818 Encounter for other preprocedural examination Office Visit 02/04/2019 3:45p [facility] Tayo Peacen O26.92 related JR, DO conditions, unspecified, second trimester O44.42 Low lying placenta NOS or without hemor, second trimester Assessments Date Code Description Provider 06/26/2019 O44.23 Partial placenta previa NOS or without Oralia Ross MD hemorrhage, third trimester 06/26/2019 O09.523 Supervision of elderly jacqueline, Oralia Ross MD third trimester 06/26/2019 Z01.818 Encounter for other preprocedural Oralia Ross MD examination 06/22/2019 O44.23 Partial placenta previa NOS or [...] hemorrhage, second trimester Plan of Treatment Future Appointment(s):08/06/2019 2:00 pm - Oralia Ross MD at [facility]07/08/2019 1:15 pm - Caroline Grande CNM at [facility]07/01/2019 7 :45 am - Shanna Sanchez MD at [facility] O 07/01/2019 7:45 am - Oralia Ross MD at [facility] O R006/26/2019 - Oralia Ross MDO44.23 Partial placenta previa NOS or without hemorrhage, third trimesterComments:Pt to continue with nothing per vagina and will plan on delivery before 38 weeks secondary to previa.O09.523 Supervision of elderly multigravida, third trimesterComments:routine care [id number] Encounter for other preprocedural examinationComments: Reviewed with patient risk associated with primary caesarean for placenta previa. Pt accepts risk toinclude but not limited to infection bleeding with need for blood transfusion, damage to internal organs, pain ,scarring ,rare need for hysterectomy to control bleeding.Consent form reviewed personallywith aid of asset protection greeter( Manuel). All questions were answered to patient and husbands satisfaction. Functional Status Description No Information Available Mental Status Description No Information Available Referrals Description No Information Available
--- OUTSIDE RECORDS SUMMARY | 2019-07-01 06:01 | XMS REPORT | Continuity of Care Document ---
:1980 External Reference #:[id number] Author Name Oralia Ross MD (transmitted by agent of provider Nena Recio) Address [address] [place] [address] Care Team Providers Name Role Phone [facility] - Labor_And_De Care Team Information Tug Hand [phone] Problems Description No Information Available Social History [...] CPT Code Status Date Vaccine Lot # [id number] Given 06/04/2019 Tetnus, Diptheria Toxoids And Acellular [...] Mass Index) 29.4 kg/m2 Last Menstrual Period 5683512 3 Parity 2 Results Test Acquired Date Facility Test Result H/L Range Note Xray 06/22/2019 [facility],Pr <pending> egnancy >14WKS Laboratory test 05/13/2019 [facility] Glucose 1 HR 115 mg/dL Normal 70-160 1, 2 [place] [address] Post Prandial [phone] CBC With No 05/13/2019 [facility] White Blood 7.2 Normal 3.5- 10.8 [place] [address] Count 10^3/uL [phone] Red Blood Count 3.75 10^6/uL Normal 3.70-4.87 [...] Hospital Rubella Screen Equivocal Immune 3 [place] [address] IgG [phone] Varicella Zoster 05/13/2019 [facility] Varicella-Zost Positive 4 [place] [address] er IgG [phone] Antibody Varicella IgG Antibody Index 1.7 5 Drug Screen 04/01/2019 [facility] Urine None Detected None Detect 6 [place] [address] Hydrocodone Clinic [phone] Screen Urine Oxycodone Screen None Detected None [...] Urine Culture SEE RESULT 8, 9 [place] [address] BELOW [phone] Laboratory test 02/09/2019 [facility] Cytology SEE RESULT 10, 11 [place] [address] BELOW [phone] GC/Chlamydia Dna 02/09/2019 [facility] GCCHL (SEE NOTE) 12 [place] [address] Disclaimer [phone] Chlamydia trachomatis Ken Negative Negative Neisseria gonorrhoeae (GC) Ken Negative Negative Panorama Test 02/04/2019 [facility] Report Summary See Notes Normal 13 Report Note See Notes Normal Trisomy 13 Age-Based Risk Fraction 03/1209 Normal Trisomy 13 Risk Score Text <1/10,000 (<0.01 <SEE NOTE> Normal 14 Trisomy 13 Risk Score Fraction <1/14835 Normal Trisomy 13 Result Text Low Risk Normal Trisomy 13 Result Comments See Notes Normal Trisomy 18 Age-Based Risk Fraction 1/393 Normal Trisomy 18 Risk Score Text <1/10,000 (<0.01 <SEE NOTE> Normal 15 Trisomy 18 Risk Score Fraction <1/76061 Normal Trisomy 18 Result Text Low Risk Normal Trisomy 18 Result Comments See Notes Normal Trisomy 21 Age-Based Risk Fraction 1/131 Normal Trisomy 21 Risk Score Text <1/10,000 (<0.01 <SEE NOTE> Normal 16 Trisomy 21 Risk Score Fraction <1/67769 Normal Trisomy 21 Result Text Low Risk Normal Trisomy 21 Result Comments See Notes Normal Monosomy X Age-Based Risk Fraction 1/568 Normal Monosomy X Risk Score <0.01 % Normal Monosomy X Risk Score Text <1/10,000 (<0.01 <SEE NOTE> Normal 17 Monosomy X Risk Score Fraction <1/57800 Normal Monosomy X Result Text Low Risk [...] 02/04/2019 [facility] Collection Date [address] [place] [address] [phone] Maternal Date of 80 Calculated Age At [...] General Hospital HIV 4th [place] [address] Generation [phone] Lead 02/04/2019 [facility] Lead,Venous, B 1.4 g/dL 0.0-4.9 [address] [place] [address] [phone] Venous/Capillary Venous Submitting Laboratory Phone [phone] Type And Screen 02/04/2019 [facility] Patient [place] [address] [phone] Antibody Screen NEGATIVE CBC With No 02/04/2019 [facility] White Blood 7.2 10^3/uL Normal 3.5-10.8 [place] [address] Count [phone] Red Blood Count 4.16 10^6/uL Normal 3.70-4.87 [...] Hospital Rubella Screen Equivocal Immune 35 [place] [address] IgG [phone] Hemoglobin A1c 5.3 % Normal 4.0-5.6 36 Hepatitis B Surface Antigen Nonreactive Nonreactive 37 Syphillis Igg W/Reflex RPR Negative Negative 38 1 [id number] 2 [id number] 3 [id number] 4 Results suggest response to immunization or prior exposure to the virus. REFERENCE VALUE Vaccinated: Positive (>=1.1 AI) Unvaccinated: Negative (<=0.8 AI) 5 Test Performed by: [facility] [employer] - [facility] [address] [place] [address] Mining Helper: Sampson Felix M.D. Ph.D.; IA# [id number] 6 [id number] 7 The specimen was tested at the listed cutoffs: Drug Class Test level (ng/mL) Hydrocodone 300 Oxycodone 100 Fentanyl 1 Methadone 150 Buprenorphine 5 Amphetamines 500 Barbiturates 200 Benzodiazepines 200 Cocaine 150 Cannabinoids 50 Opiates 300 PCP 25 Specimen was received without chain of custody. Results should be used for medical purposes only. 8 [id number] 9 SEE RESULT BELOW Name: CHRISTY LAWRENCE : [address]: Tayo Keane DO Acct: [id number] Unit: [id number] AGE: 38 Location: [facility] Re03/04/19 SEX: F Status: REG REF SPEC: [id number] BETO: 03/04/[address]: Tayo Keane DO REQ: [id number] RECD: 03/04/19 STATUS: COMP _ SOURCE: URINE SPDESC: ORDERED: Urine Culture COMMENTS: [id number] Urine Source: Random Procedure Result Reported Site Urine Culture Final 03/05/19- 7488 ML No Growth (<1,000 CFU/mL) * ML - Main Lab . END OF REPORT DEPARTMENT OF PATHOLOGY, [address] [place] [address] Abdullahi Deng M.D. Director [facility] # [id number] 10 [id number] 11 SEE RESULT BELOW Name: CHRISTY LAWRENCE : [address]: Caroline Grande [facility] Acct: [id number] Unit: [id number] AGE: 38 Location: [facility] Re02/09/19 SEX: F Status: REG REF SPEC: [id number] BETO: 02/09/19-[address]: Caroline Grande [facility] REQ: [id number] RECD: 02/09/19 STATUS: SOUT _ ORDERED: TP IMAGE ANALYS, HPV/Thin Prep COMMENTS: [id number] FINAL DIAGNOSIS Negative for Intraepithelial lesion or [...] CONTINUED ON NEXT PAGE DEPARTMENT OF PATHOLOGY, [address] [place] [address] Abdullahi Deng M.D. Director [facility] # [id number] CYTOLOGY PATIENT INFORMATION Patient Information: HPV: High risk HPV RNA testing regardless of pap results. Actual Specimen Date: 02/09/19 Last Menstrual Date: 10/11/18 ?: Y Signed by and Reported on: TIFFANIE Wood(ASCP) 1527 This Pap test was evaluated with the assistance of the [employer] USAPrep Test Imaging System. Due to cytologic findings at the prevention rn microscope, comprehensive manual rescreening by a Outreach Coordinator may be required. The Pap Smear is [...] years. END OF REPORT DEPARTMENT OF PATHOLOGY, [facility] [place], [place] [address] Abdullahi Deng M.D. Director [facility] # [id number] 12 As with all diagnostic procedures, the [...] [Sabine et al. The Human Genetics Conference. [place], [place]. August 11-2016]. However, ???some samples will not [...] appropriate. The Panorama test was developed by [facility] a laboratory certified under the Clinical Laboratory Improvement Amendments (CLIA). This test has not been cleared or approved by the U.S, Food and Drug Administration (FDA). 20 Please refer to the attached PDF report 21 Test performed by [facility]. [address] [place] [address] CLIA ID #[id number] Tia Pate Ph.D., [facility], [employer] 22 IF THE ORDERING PROVIDER HAS QUESTIONS OR WISHES TO DISCUSS THE RESULTS, PLEASE CONTACT US AT [phone] #3. Ask for the NIPT genetic counselor electronic integrated systems mechanic. 23 [id number] 24 REVISED RESULTS PREVIOUSLY REPORTED 08/05/19 (Reported [...] developed and its performance characteristics determined by [facility] in a manner consistent with CLIA requirements. This test has not been cleared or approved by the U.S. Food and Drug Administration. Test Performed by: [facility] [place] [address] Mining Helper: Sampson Felix M.D. Ph.D.; CLIA# [id number] 30 REVISED RESULTS This is a corrected version of the report produced on 02/09/19. PREVIOUSLY REPORTED DNR (Reported 02/09/2019 16:45) 31 RESULT: REVISED RESULTS PREVIOUSLY REPORTED DNR (Reported 02/09/2019 16:45) 32 REVISED RESULTS PREVIOUSLY REPORTED DNR (Reported 02/09/2019 16:45) 33 ADDITIONAL INFORMATION Testing performed by Inductively Coupled Plasma-Mass Spectrometry (ICP-MS). This test was developed and its performance characteristics determined by [facility] in a manner consistent with CLIA requirements. This test has not been cleared or approved by the U.S. Food and Drug Administration. 34 Test Performed by: [facility] - [facility] [address] [place] [address] Mining Helper: Sampson Felix M.D. Ph.D.; CLIA# [id number] 35 [id number] 36 Therapeutic target for the treatment of diabetes mellitus patients is <7% HBA1C, and in selective patients <6.0%. Please refer to [place] Diabetes [employer] diabetic care guidelines for further information. 37 [id number] 38 [id number] Procedures Date Code Description Status 06/22/2019 44690 Biophysical Profile Without Non Stress Test Completed 06/22/2019 80283 Echography Uterus Follow-Up Or Repeat Completed 05/28/2019 51065 Biophysical Profile Without Non Stress Test Completed 05/28/2019 64248 Ultrasound,Transvaginal Completed 05/28/2019 16945 Echography Uterus Follow-Up Or Repeat Completed 04/29/2019 49253 Echography Uterus Follow-Up Or Repeat Completed 03/04/2019 99479 Echography Uterus Complete Completed 02/04/2019 09624 Echography Uterus Limited Completed Medical Devices Description No Information Available Encounters Type Date Location Provider Dx Diagnosis Office Visit 02/04/2019 [facility] Tayo Keane JR, DO O26.92 related 3:45p [...] 2:00 pm - Oralia Ross MD at [facility]07/08/2019 1:15 pm - Caroline Grande CNM at [facility]07/01/2019 7 :45 am - Shanna Sanchez MD at [facility] O R007/01/2019 7:45 am - Oralia Ross MD at [facility] O R Functional Status Description No Information Available Mental Status Description No Information Available Referrals Description No Information Available
--- OUTSIDE RECORDS SUMMARY | 2019-07-01 06:01 | XMS REPORT | Continuity of Care Document ---
:1980 External Reference #:[id number] Author Name Janis Esteban CNM (transmitted by agent of provider Sandy Jackson) Address [address] [place] [address] Care Team Providers Name Role Phone [facility] [facility]And[facility] Care Team Information Design Maker [phone] Problems Description No Information Available Social History [...] CPT Code Status Date Vaccine Lot # [id number] Given 06/04/2019 Tetnus, Diptheria Toxoids And Acellular Pertussis, 2KK23 PT > 7Yrs Old Vital Signs Date Vital Result Comment 02/09/2019 9:33am BP Systolic 100 mmHg BP Diastolic 52 mmHg Height 57 inches 4'9" Weight 136.00 lb BMI (Body Mass Index) 29.4 kg/m2 Last Menstrual Period 8044211 3 Parity 2 02/04/2019 2:22pm BP Systolic 122 mmHg BP Diastolic 64 mmHg Weight 139.00 lb Last Menstrual Period 1190118 3 Parity 2 Results Test Acquired Date Facility Test Result H/L Range Note Xray 06/22/2019 [facility],Pr <pending> egnancy >14WKS Laboratory test 05/13/2019 [facility] Glucose 1 HR 115 mg/dL Normal 70-160 1, 2 [place] [address] Post Prandial [phone] CBC With No 05/13/2019 [facility] White Blood 7.2 Normal 3.5- 10.8 [place] [address] Count 10^3/uL [phone] Red Blood Count 3.75 10^6/uL Normal 3.70-4.87 Hemoglobin 11.5 g/dL Low 12.0-16.0 Hematocrit 33 % Low 35-47 Mean Corpuscular Volume 88 fL Normal 80-97 Mean Corpuscular Hemoglobin 31 pg Normal 27-31 Mean Corpuscular HGB Conc 35 g/dL Normal 31-36 Red Cell Distribution Width 14 % Normal 10-15 Platelet Count 289 10^3/uL Normal 150-450 Mean Platelet Volume 7.8 fL Normal 7.4-10.4 Laboratory test 05/13/2019 [facility] Rubella Screen Equivocal Immune 3 [place] [address] IgG [phone] Varicella Zoster 05/13/2019 [facility] Varicella-Zost Positive 4 [place] [address] er IgG [phone] Antibody Varicella IgG Antibody Index 1.7 5 Drug Screen 04/01/2019 [facility] Urine None Detected None Detect 6 [place] [address] Hydrocodone Clinic [phone] Screen Urine Oxycodone Screen None Detected None [...] None Detect 7 Urine Culture And 03/04/2019 [facility] Urine Culture SEE RESULT 8, 9 [place] [address] BELOW [phone] Laboratory test 02/09/2019 [facility] Cytology SEE RESULT 10, 11 [place] [address] BELOW [phone] GC/Chlamydia Dna 02/09/2019 [facility] GCCHL (SEE NOTE) 12 [place] [address] Disclaimer [phone] Chlamydia trachomatis Ken Negative Negative Neisseria gonorrhoeae (GC) Ken Negative Negative Panorama Test 02/04/2019 [facility] Report Summary See Notes Normal 13 Report Note See Notes Normal Trisomy 13 Age-Based Risk Fraction 03/1209 Normal Trisomy 13 Risk Score Text <1/10,000 (<0.01 <SEE NOTE> Normal 14 Trisomy 13 Risk Score Fraction <1/18692 Normal Trisomy 13 Result Text Low Risk Normal Trisomy 13 Result Comments See Notes Normal Trisomy 18 Age-Based Risk Fraction 1/393 Normal Trisomy 18 Risk Score Text <1/10,000 (<0.01 <SEE NOTE> Normal 15 Trisomy 18 Risk Score Fraction <1/43540 Normal Trisomy 18 Result Text Low Risk Normal Trisomy 18 Result Comments See Notes Normal Trisomy 21 Age-Based Risk Fraction 1/131 Normal Trisomy 21 Risk Score Text <1/10,000 (<0.01 <SEE NOTE> Normal 16 Trisomy 21 Risk Score Fraction <1/43807 Normal Trisomy 21 Result Text Low Risk Normal Trisomy 21 Result Comments See Notes Normal Monosomy X Age-Based Risk Fraction 1/568 Normal Monosomy X Risk Score <0.01 % Normal Monosomy X Risk Score Text <1/10,000 (<0.01 <SEE NOTE> Normal 17 Monosomy X Risk Score Fraction <1/13400 Normal Monosomy X Result Text Low Risk Normal Monosomy X Result Comments See Notes Normal Triploidy Result Text Low Risk Normal Triploidy Result Comments See Notes Normal Gender of Fetus Male Fraction (in %) 8.7 % Fraction 8.7% Footnotes See Notes 18 Boiler Plate Text See Notes 19 References See Notes 20 Approvals See Notes 21 Contacts See Notes 22 Afp,Screen Maternal 02/04/2019 [facility] Collection Date [address] [place] [address] [phone] Maternal Date of 80 Calculated Age At [...] MoM <2.50 32 HIV 1&2 p24 02/04/2019 [facility] HIV 4th [place] [address] Generation [phone] Lead 02/04/2019 [facility] Lead,Venous, B 1.4 g/dL 0.0-4.9 [address] [place] [address] [phone] Venous/Capillary Venous Submitting Laboratory Phone [phone] Type And Screen 02/04/2019 [facility] Patient [place] [address] [phone] Antibody Screen NEGATIVE CBC With No 02/04/2019 [facility] White Blood 7.2 10^3/uL Normal 3.5-10.8 [place] [address] Count [phone] Red Blood Count 4.16 10^6/uL Normal 3.70-4.87 Hemoglobin 12.9 g/dL Normal 12.0-16.0 Hematocrit 38 % Normal 35-47 Mean Corpuscular Volume 90 fL Normal 80-97 Mean Corpuscular Hemoglobin 31 pg Normal 27-31 Mean Corpuscular HGB Conc 34 g/dL Normal 31-36 Red Cell Distribution Width 14 % Normal 10-15 Platelet Count 333 10^3/uL Normal 150-450 Mean Platelet Volume 7.9 fL Normal 7.4-10.4 PNL No 02/04/2019 [facility] Rubella Screen Equivocal Immune 35 [place] [address] IgG [phone] Hemoglobin A1c 5.3 % Normal 4.0-5.6 36 Hepatitis B Surface Antigen Nonreactive Nonreactive 37 Syphillis Igg W/Reflex RPR Negative Negative 38 1 [id number] 2 [id number] 3 [id number] 4 Results suggest response to immunization or prior exposure to the virus. REFERENCE VALUE Vaccinated: Positive (>=1.1 AI) Unvaccinated: Negative (<=0.8 AI) 5 Test Performed by: [facility] [employer] - [facility] [address] [place] [address] Medical Transcription: Sampson Felix M.D. Ph.D.; [facility]# [id number] 6 [id number] 7 The specimen was tested at the listed cutoffs: Drug Class Test level (ng/mL) Hydrocodone 300 Oxycodone 100 Fentanyl 1 Methadone 150 Buprenorphine 5 Amphetamines 500 Barbiturates 200 Benzodiazepines 200 Cocaine 150 Cannabinoids 50 Opiates 300 PCP 25 Specimen was received without chain of custody. Results should be used for medical purposes only. 8 [id number] 9 SEE RESULT BELOW Name: CHRISTY LAWRENCE : [address]: Tayo Keane DO Acct: [id number] Unit: [id number] AGE: 38 Location: [facility] Re03/04/19 SEX: F Status: REG REF SPEC: [id number] BETO: 03/04/[address]: Tayo Keane DO REQ: [id number] RECD: 03/04/19 STATUS: COMP _ SOURCE: URINE SPDES: ORDERED: Urine Culture COMMENTS: [id number] Urine Source: Random Procedure Result Reported Site Urine Culture Final 03/05/19- 1449 ML No Growth (<1,000 CFU/mL) * ML - Main Lab . END OF REPORT DEPARTMENT OF PATHOLOGY, [address] [place] [address] Abdullahi Deng M.D. Director [facility] # [id number] 10 [id number] 11 SEE RESULT BELOW Name: CHRISTY LAWRENCE : [address]: Caroline Grande [facility] Acct: [id number] Unit: [id number] AGE: 38 Location: [facility] Re02/09/19 SEX: F Status: REG REF SPEC: [id number] BETO: 02/09/19-[address]: Caroline Grande [facility] REQ: [id number] RECD: 02/09/19 STATUS: SOUT _ ORDERED: TP IMAGE ANALYS, HPV/Thin Prep COMMENTS: [id number] FINAL DIAGNOSIS Negative for Intraepithelial lesion or [...] CONTINUED ON NEXT PAGE DEPARTMENT OF PATHOLOGY, [address] [place] [address] Abdullahi Deng M.D. Director [facility] # [id number] CYTOLOGY PATIENT INFORMATION Patient Information: HPV: High risk HPV RNA testing regardless of pap results. Actual Specimen Date: 02/09/19 Last Menstrual Date: 10/11/18 ?: Y Signed by and Reported on: TIFFANIE Wood(ASCP) 1527 This Pap test was evaluated with the assistance of the [employer] Test Imaging System. Due to cytologic findings at the civil celebrant microscope, comprehensive manual rescreening by a Agricultural Service Technician may be required. The Pap Smear is [...] years. END OF REPORT DEPARTMENT OF PATHOLOGY, [address] [place] [address] Abdullahi Deng M.D. Director [facility] # [id number] 12 As with all diagnostic procedures, the [...] single nucleotide polymorphism-based (SNP-based) next-generation sequencing [Ariella Caceres et al. Obstet Gynecol. 2013;124(2 Pt 1):210-8]. If the estimated fraction is ???2.8%, sequencing data is analyzed using a proprietary SNP-based algorithm to determine the copy number for chromosomes 13, 18, 21, X and Y [Piyush Orozco et al. Am J Ob stet Gynecol. 2013;211(5):527.e1-527.e17]. If ordered, specific microdeletions will be evaluated using similar methodology [Jori ISAAC et al. Am J Obstet Gynecol. 2015 May;212(3):332.e1-9]. If a samp le fails to meet the quality threshold, or the fraction is insufficient , an additional algorithm is utilized to determine whether there is an increased risk for triploidy, trisomy 18 and trisomy 1 3 [Sabine robert al. The Human Genetics Conference. [facility]. August 11-2016]. However, ???some samples will not [...] appropriate. The Panorama test was developed by [facility] a laboratory certified under the Clinical Laboratory Improvement Amendments (CLIA). This test has not been cleared or approved by the U.S, Food and Drug Administration (FDA). 20 Please refer to the attached PDF report 21 Test performed by [facility]. [address] [place] [address] CLIA ID #[id number] Tia Pate Ph.D., [facility], School Crossing Guard Supervisor 22 IF THE ORDERING PROVIDER HAS QUESTIONS OR WISHES TO DISCUSS THE RESULTS, PLEASE CONTACT US AT [phone] #3. Ask for the [facility] genetic counselor director of consumer marketing. 23 [id number] 24 REVISED RESULTS PREVIOUSLY REPORTED 08/05/19 (Reported [...] and its performance characteristics determined by [facility] in a manner consistent with CLIA requirements. This test has not been cleared or approved by the U.S. Food and Drug Administration. Test Performed by: [facility] - [address] [address] Medical Transcription: Sampson Felix M.D. Ph.D.; CLIA# [id number] 30 REVISED RESULTS This is a corrected version of the report produced on 02/09/19. PREVIOUSLY REPORTED DNR (Reported 02/09/2019 16:45) 31 RESULT: REVISED RESULTS PREVIOUSLY REPORTED DNR (Reported 02/09/2019 16:45) 32 REVISED RESULTS PREVIOUSLY REPORTED DNR (Reported 02/09/2019 16:45) 33 ADDITIONAL INFORMATION Testing performed by Inductively Coupled Plasma-Mass Spectrometry (ICP-MS). This test was developed and its performance characteristics determined by [facility] in a manner consistent with CLIA requirements. This test has not been cleared or approved by the U.S. Food and Drug Administration. 34 Test Performed by: [facility] - [facility] [address] [facility], [place] [address] Medical Transcription: Sampson Felix M.D. Ph.D.; CLIA# [id number] 35 [id number] 36 Therapeutic target for the treatment of diabetes mellitus patients is <7% HBA1C, and in selective patients <6.0%. Please refer to [employer] [employer] diabetic care guidelines for further information. 37 [id number] 38 [id number] Procedures Date Code Description Status 06/22/2019 28714 Biophysical Profile Without Non Stress Test Completed 06/22/2019 66045 Echography Uterus Follow-Up Or Repeat Completed 05/28/2019 40502 Biophysical Profile Without Non Stress Test Completed 05/28/2019 07920 Ultrasound,Transvaginal Completed 05/28/2019 98406 Echography Uterus Follow-Up Or Repeat Completed 04/29/2019 23251 Echography Uterus Follow-Up Or Repeat Completed 03/04/2019 32735 Echography Uterus Complete Completed 02/04/2019 95303 Echography Uterus Limited Completed Medical Devices Description [...] 05/28/2019 O09.523 Supervision of elderly multigravida, Rian iGlliam M.D. third trimester 05/28/2019 O44.13 Complete placenta [...] O44.22 Partial placenta previa NOS or without Rain Gilliam M.D. hemorrhage, second trimester 04/29/2019 O09.522 [...] 8:20 am - Rian Gilliam M.D. at [facility]02/04/2019 - Tayo Keane JR, DOZ34.82 Encounter for supervision of other normal , second xzqlaxjdiV82.92 related conditions, unspecified, second trimesterComments:SIUP at 16w4d, no care to dateHx of x 2, uncomplicatedWill collect all labs today including NIPT and MSAFPRTO for complete NOB ASAPUSN WNL with the exception of a low lying placenta - re-assess at 28 weeks for vtcmhoydaoR92.42 Low lying placenta NOS or without hemorrhage, second trimesterComments:LLP/Marginal Previare-assess at 28 weeks for resolutionPelvic rest advisedBleeding precautions carefully reviewed Functional Status Description No Information Available Mental Status Description No Information Available Referrals Description No Information Available
--- OUTSIDE RECORDS SUMMARY | 2019-07-01 06:02 | XMS REPORT | Continuity of Care Document ---
:1980 External Reference #:[id number] Author Name Rian Gilliam M.D. (transmitted by agent of provider Nena Recio) Address [address] [place] [address] Care Team Providers Name Role Phone [facility] [place] Team Information Trade Clerk [phone] Problems Description No Information Available Social History [...] Active Medications Unknown 02/04/2019 - 02/09/2019 Immunizations Description No Information Available Vital Signs Date Vital Result Comment 02/09/2019 9:33am BP Systolic 100 mmHg BP Diastolic 52 mmHg Height 57 inches 4'9" Weight 136.00 lb BMI (Body Mass Index) 29.4 kg/m2 Last Menstrual Period [id number] 3 Parity 2 02/04/2019 2:22pm BP Systolic 122 mmHg BP Diastolic 64 mmHg Weight 139.00 lb Last Menstrual Period [id number] 3 Parity 2 Results Test Acquired Date Facility Test Result H/L Range Note Laboratory test 05/13/2019 [facility] Glucose 1 HR 115 mg/dL Normal 70-160 1, 2 [place] [address] Post Prandial [phone] CBC With No 05/13/2019 [facility] White Blood 7.2 Normal 3.5- 10.8 [place] [address] Count 10^3/uL [phone] Red Blood Count 3.75 10^6/uL Normal 3.70-4.87 Hemoglobin 11.5 g/dL Low 12.0-16.0 Hematocrit 33 % Low 35-47 Mean Corpuscular Volume 88 fL Normal 80-97 Mean Corpuscular Hemoglobin 31 pg Normal 27-31 Mean Corpuscular HGB Conc 35 g/dL Normal 31-36 Red Cell Distribution Width 14 % Normal 10-15 Platelet Count 289 10^3/uL Normal 150-450 Mean Platelet Volume 7.8 fL Normal 7.4-10.4 Laboratory test 05/13/2019 [facility] Rubella Screen Equivocal Immune 3 [place] [address] IgG [phone] Varicella Zoster 05/13/2019 [facility] Varicella-Zost Positive 4 [place] [address] er IgG [phone] Antibody Varicella IgG Antibody Index 1.7 5 Drug Screen 04/01/2019 [facility] Urine None Detected None Detect 6 [place] [address] Hydrocodone Clinic [phone] Screen Urine Oxycodone Screen None Detected None [...] None Detect 7 Urine Culture And 03/04/2019 [facility] Urine Culture SEE RESULT 8, 9 [place] [address] BELOW [phone] Laboratory test 02/09/2019 [facility] Cytology SEE RESULT 10, 11 [place] [address] BELOW [phone] GC/Chlamydia Dna 02/09/2019 [facility] GCCHL (SEE NOTE) 12 [place] [address] Disclaimer [phone] Chlamydia trachomatis Ken Negative Negative Neisseria gonorrhoeae (GC) Ken Negative Negative Panorama Test 02/04/2019 [facility] Report Summary See Notes Normal 13 Report Note See Notes Normal Trisomy 13 Age-Based Risk Fraction 03/1209 Normal Trisomy 13 Risk Score Text <1/10,000 (<0.01 <SEE NOTE> Normal 14 Trisomy 13 Risk Score Fraction <1/28209 Normal Trisomy 13 Result Text Low Risk Normal Trisomy 13 Result Comments See Notes Normal Trisomy 18 Age-Based Risk Fraction 1/393 Normal Trisomy 18 Risk Score Text <1/10,000 (<0.01 <SEE NOTE> Normal 15 Trisomy 18 Risk Score Fraction <1/46765 Normal Trisomy 18 Result Text Low Risk Normal Trisomy 18 Result Comments See Notes Normal Trisomy 21 Age-Based Risk Fraction 1/131 Normal Trisomy 21 Risk Score Text <1/10,000 (<0.01 <SEE NOTE> Normal 16 Trisomy 21 Risk Score Fraction <1/39874 Normal Trisomy 21 Result Text Low Risk Normal Trisomy 21 Result Comments See Notes Normal Monosomy X Age-Based Risk Fraction 1/568 Normal Monosomy X Risk Score <0.01 % Normal Monosomy X Risk Score Text <1/10,000 (<0.01 <SEE NOTE> Normal 17 Monosomy X Risk Score Fraction <1/35227 Normal Monosomy X Result Text Low Risk Normal Monosomy X Result Comments See Notes Normal Triploidy Result Text Low Risk Normal Triploidy Result Comments See Notes Normal Gender of Fetus Male Fraction (in %) 8.7 % Fraction 8.7% Footnotes See Notes 18 Boiler Plate Text See Notes 19 References See Notes 20 Approvals See Notes 21 Contacts See Notes 22 Afp,Screen Maternal 02/04/2019 [facility] Collection Date [address] [id number] [phone] Maternal Date of 80 Calculated Age At [...] MoM <2.50 32 HIV 1&2 p24 02/04/2019 [facility] HIV 4th Nonreactive [place] [address] Generation [phone] Lead 02/04/2019 [facility] Lead,Venous, B 1.4 g/dL 0.0-4.9 [address] [place] [address] [phone] Venous/Capillary Venous Submitting Laboratory Phone [phone] Type And Screen 02/04/2019 [facility] Patient [place] [address] [phone] Antibody Screen NEGATIVE CBC With No 02/04/2019 [facility] White Blood 7.2 10^3/uL Normal 3.5-10[place] [place] [address] Count [phone] Red Blood Count 4.16 10^6/uL Normal 3.70-4.87 Hemoglobin 12.9 g/dL Normal 12.0-16.0 Hematocrit 38 % Normal 35-47 Mean Corpuscular Volume 90 fL Normal 80-97 Mean Corpuscular Hemoglobin 31 pg Normal 27-31 Mean Corpuscular HGB Conc 34 g/dL Normal 31-36 Red Cell Distribution Width 14 % Normal 10-15 Platelet Count 333 10^3/uL Normal 150-450 Mean Platelet Volume 7.9 fL Normal 7.4-10.4 PNL No 02/04/2019 [facility] Rubella Screen Equivocal Immune 35 [place] [address] IgG [phone] Hemoglobin A1c 5.3 % Normal 4.0-5.6 36 Hepatitis B Surface Antigen Nonreactive Nonreactive 37 Syphillis Igg W/Reflex RPR Negative Negative 38 1 [id number] 2 [id number] 3 [id number] 4 Results suggest response to immunization or prior exposure to the virus. REFERENCE VALUE Vaccinated: Positive (>=1.1 AI) Unvaccinated: Negative (<=0.8 AI) 5 Test Performed by: [facility] [address] [place] [address] Invasive Physician: Sampson Felix M.D. Ph.D.; IA# [id number] 6 [id number] 7 The specimen was tested at the listed cutoffs: Drug Class Test level (ng/mL) Hydrocodone 300 Oxycodone 100 Fentanyl 1 Methadone 150 Buprenorphine 5 Amphetamines 500 Barbiturates 200 Benzodiazepines 200 Cocaine 150 Cannabinoids 50 Opiates 300 PCP 25 Specimen was received without chain of custody. Results should be used for medical purposes only. 8 [id number] 9 SEE RESULT BELOW Name: MAGDALENA BLAKELYCHRISTY : [address]: Tayo Keane DO Acct: [id number] Unit: [id number] AGE: 38 Location: [facility] Re03/04/19 SEX: F Status: REG REF SPEC: [id number] BETO: 03/04/19-[address]: Tayo Keane DO REQ: [id number] RECD: 03/04/19 STATUS: COMP _ SOURCE: URINE SPDESC: ORDERED: Urine Culture COMMENTS: [id number] Urine Source: Random Procedure Result Reported Site Urine Culture Final 03/05/19- 1449 ML No Growth (<1,000 CFU/mL) * ML - Main Lab . END OF REPORT DEPARTMENT OF PATHOLOGY, [address] [place] [address] Abdullahi Deng M.D. Director [facility] # [id number] 10 [id number] 11 SEE RESULT BELOW Name: CHRISTY LAWRENCEMADY : [address]: Caroline Grande [facility] Acct: [id number] Unit: [id number] AGE: 38 Location: [facility] Re02/09/19 SEX: F Status: REG REF SPEC: [id number] BETO: 02/09/191028 [facility] DR: Caroline Grande [facility] REQ: [id number] RECD: 02/09/19 STATUS: SOUT _ ORDERED: TP IMAGE ANALYS, HPV/Thin Prep COMMENTS: [id number] FINAL DIAGNOSIS Negative for Intraepithelial lesion or [...] CONTINUED ON NEXT PAGE DEPARTMENT OF PATHOLOGY, [address] [place] [address] Abdullahi Deng M.D. Director [facility] # [id number] CYTOLOGY PATIENT INFORMATION Patient Information: HPV: High risk HPV RNA testing regardless of pap results. Actual Specimen Date: 02/09/19 Last Menstrual Date: 10/11/18 ?: Y Signed by and Reported on: Lelia TIFFANIE Steele(ASCP) 1527 This Pap test was evaluated with the assistance of the [employer]otopedia Test Imaging System. Due to cytologic findings at the logging assistant microscope, comprehensive manual rescreening by a Secret Code Expert may be required. The Pap Smear is [...] years. END OF REPORT DEPARTMENT OF PATHOLOGY, [address] [place] [address] Abdullahi Deng M.D. Director [facility] # [id number] 12 As with all diagnostic procedures, the [...] [Sabine et al. The [employer] Conference. [place], [place]. August 11-2016]. However, ???some samples will not [...] appropriate. The Panorama test was developed by [facility] a laboratory certified under the Clinical Laboratory Improvement Amendments (CLIA). This test has not been cleared or approved by the U.S, Food and Drug Administration (FDA). 20 Please refer to the attached PDF report 21 Test performed by [facility]. [address] [place] [address] CLIA ID #[id number] Tia Pate Ph.D., [facility], [place]rel[place] Inspector 22 IF THE ORDERING PROVIDER HAS QUESTIONS OR WISHES TO DISCUSS THE RESULTS, PLEASE CONTACT US AT [phone] #3. Ask for the NIPT genetic counselor drug enforcement administration agent. 23 [id number] 24 REVISED RESULTS PREVIOUSLY REPORTED 08/05/19 (Reported [...] developed and its performance characteristics determined by [facility] in a manner consistent with CLIA requirements. This test has not been cleared or approved by the U.S. Food and Drug Administration. Test Performed by: [facility] [place] [address] Invasive Physician: Sampson Felix M.D. Ph.D.; CLIA# [id number] 30 REVISED RESULTS This is a corrected version of the report produced on 02/09/19. PREVIOUSLY REPORTED DNR (Reported 02/09/2019 16:45) 31 RESULT: REVISED RESULTS PREVIOUSLY REPORTED DNR (Reported 02/09/2019 16:45) 32 REVISED RESULTS PREVIOUSLY REPORTED DNR (Reported 02/09/2019 16:45) 33 ADDITIONAL INFORMATION Testing performed by Inductively Coupled Plasma-Mass Spectrometry (ICP-MS). This test was developed and its performance characteristics determined by [facility] in a manner consistent with CLIA requirements. This test has not been cleared or approved by the U.S. Food and Drug Administration. 34 Test Performed by: [facility] [place] [address] Invasive Physician: Sampson Felix M.D. Ph.D.; CLIA# [id number] 35 [id number] 36 Therapeutic target for the treatment of diabetes mellitus patients is <7% HBA1C, and in selective patients <6.0%. Please refer to [place] [employer] diabetic care guidelines for further information. 37 [id number] 38 [id number] Procedures Date Code Description Status 05/28/2019 56572 Biophysical Profile Without Non Stress Test Completed 05/28/2019 52443 Ultrasound,Transvaginal Completed 05/28/2019 15003 Echography Uterus Follow-Up Or Repeat Completed 04/29/2019 45085 Echography Uterus Follow-Up Or Repeat Completed 03/04/2019 65239 Echography Uterus Complete Completed 02/04/2019 84785 Echography Uterus Limited Completed Medical Devices Description No Information Available Encounters Type Date Location Provider Dx Diagnosis Office Visit 02/04/2019 [facility] Office Tayo Keane JR, DO O26.92 related 3:45p conditions, unspecified, second trimester O44.42 Low lying placenta NOS or without hemor, second trimester Assessments Date Code Description Provider 05/28/2019 O44.13 Complete placenta previa with hemorrhage, [...] 04/01/2019 O09.522 Supervision of elderly multigravida, Gabriela Coronado, [facility] second trimester 03/04/2019 Z36.3 Encounter for screening for Tayo Keane JR, DO malformations 03/04/2019 O44.22 Partial placenta previa NOS or without Tayo Lakhwinder JR, DO hemorrhage, second trimester 03/04/2019 Z36.3 Encounter for screening for Ultrasounds malformations 02/09/2019 O09.522 Supervision of elderly multigravida, Caroline Teodora Grande , [facility] second trimester 02/04/2019 Z34.82 Encounter for supervision [...] am - Rian Gilliam M.D. at [facility]06/17/2019 8:15 am - Tayo Keane JR, DO at [facility]06/10/2019 8:15 am - Tyao Keane JR DO at [facility]06/04/2019 8:15 am - Shanna Sanchez MD at [facility]02/04/2019 - Tayo Keane JR, DOZ34.82 Encounter for supervision of other normal , second kacsmibgeU96.92 related conditions, unspecified, second trimesterComments:SIUP at 16w4d, no care to dateHx of x 2, uncomplicatedWill collect all labs today including NIPT and MSAFPRTO for complete NOB ASAPUSN WNL with the exception of a low lying placenta - re-assess at 28 weeks for rxsskruyquZ73.42 Low lying placenta NOS or without hemorrhage, second trimesterComments:LLP/Marginal Previare-assess at 28 weeks for resolutionPelvic rest advisedBleeding precautions carefully reviewed Functional Status Description No Information Available Mental Status Description No Information Available Referrals Description No Information Available
--- OUTSIDE RECORDS SUMMARY | 2019-07-01 06:02 | XMS REPORT | Continuity of Care Document ---
:1980 External Reference #:[id number] Author Name Ultrasounds (transmitted by agent of provider Sandy Jackson) Address [address] [place] [address] Care Team Providers Name Role Phone [facility] [place] [facility] Care Team Information Trauma Therapist [phone] Problems Description No Information Available Social History [...] Mass Index) 29.4 kg/m2 Last Menstrual Period 8632911 3 Parity 2 02/04/2019 2:22pm BP Systolic 122 mmHg BP Diastolic 64 mmHg Weight 139.00 lb Last Menstrual Period 5520864 3 Parity 2 Results Test Acquired Date Facility Test Result H/L Range Note Laboratory test 05/13/2019 [facility] Glucose 1 HR 115 mg/dL Normal 70-160 1, 2 [place] [address] Post Prandial [phone] CBC With No 05/13/2019 [facility] White Blood 7.2 Normal 3.5- 10.8 [place] [address] Count 10^3/uL [phone] Red Blood Count 3.75 10^6/uL Normal 3.70-4.87 Hemoglobin 11.5 g/dL Low 12.0-16.0 Hematocrit 33 % Low 35-47 Mean Corpuscular Volume 88 fL Normal 80-97 Mean Corpuscular Hemoglobin 31 pg Normal 27-31 Mean Corpuscular HGB Conc 35 g/dL Normal 31-36 Red Cell Distribution Width 14 % Normal 10-15 Platelet Count 289 10^3/uL Normal 150-450 Mean Platelet Volume 7.8 fL Normal 7.4-10.4 Laboratory test 05/13/2019 [facility] Rubella Screen Equivocal Immune 3 [place] [address] IgG [phone] Varicella Zoster 05/13/2019 [facility] Varicella-Zost Positive 4 [place] [address] er IgG [phone] Antibody Varicella IgG Antibody Index 1.7 5 Drug Screen 04/01/2019 [facility] Urine None Detected None Detect 6 [place] [address] Hydrocodone Clinic [phone] Screen Urine Oxycodone Screen None Detected None [...] None Detect 7 Urine Culture And 03/04/2019 [facility] Urine Culture SEE RESULT 8, 9 [place] [address] BELOW [phone] Laboratory test 02/09/2019 [facility] Cytology SEE RESULT 10, 11 [place] [address] BELOW [phone] GC/Chlamydia Dna 02/09/2019 [facility] GCCHL (SEE NOTE) 12 [place] [address] Disclaimer [phone] Chlamydia trachomatis Ken Negative Negative Neisseria gonorrhoeae (GC) Ken Negative Negative Panorama Test 02/04/2019 [facility] Report Summary See Notes Normal 13 Report Note See Notes Normal Trisomy 13 Age-Based Risk Fraction 03/1209 Normal Trisomy 13 Risk Score Text <1/10,000 (<0.01 <SEE NOTE> Normal 14 Trisomy 13 Risk Score Fraction <1/35849 Normal Trisomy 13 Result Text Low Risk Normal Trisomy 13 Result Comments See Notes Normal Trisomy 18 Age-Based Risk Fraction 1/393 Normal Trisomy 18 Risk Score Text <1/10,000 (<0.01 <SEE NOTE> Normal 15 Trisomy 18 Risk Score Fraction <1/88588 Normal Trisomy 18 Result Text Low Risk Normal Trisomy 18 Result Comments See Notes Normal Trisomy 21 Age-Based Risk Fraction 1/131 Normal Trisomy 21 Risk Score Text <1/10,000 (<0.01 <SEE NOTE> Normal 16 Trisomy 21 Risk Score Fraction <1/22843 Normal Trisomy 21 Result Text Low Risk Normal Trisomy 21 Result Comments See Notes Normal Monosomy X Age-Based Risk Fraction 1/568 Normal Monosomy X Risk Score <0.01 % Normal Monosomy X Risk Score Text <1/10,000 (<0.01 <SEE NOTE> Normal 17 Monosomy X Risk Score Fraction <1/62150 Normal Monosomy X Result Text Low Risk Normal Monosomy X Result Comments See Notes Normal Triploidy Result Text Low Risk Normal Triploidy Result Comments See Notes Normal Gender of Fetus Male Fraction (in %) 8.7 % Fraction 8.7% Footnotes See Notes 18 Boiler Plate Text See Notes 19 References See Notes 20 Approvals See Notes 21 Contacts See Notes 22 Afp,Screen Maternal 02/04/2019 [facility] Collection Date [address] [place] [address] [phone] Maternal Date of 80 Calculated Age At [...] MoM <2.50 32 HIV 1&2 p24 02/04/2019 [facility] HIV 4th Nonreactive Nonreactive Screen [address] [phone] Lead 02/04/2019 [facility] Lead,Venous, B 1.4 g/dL 0.0-4.9 [address] [place] [address] [phone] Venous/Capillary Venous Submitting Laboratory Phone [phone] Type And Screen 02/04/2019 [facility] Patient Blood [place] [address] [phone] Antibody Screen NEGATIVE CBC With No 02/04/2019 [facility] White Blood 7.2 10^3/uL Normal 3.5-10.8 [place] [address] Count [phone] Red Blood Count 4.16 10^6/uL Normal 3.70-4.87 Hemoglobin 12.9 g/dL Normal 12.0-16.0 Hematocrit 38 % Normal 35-47 Mean Corpuscular Volume 90 fL Normal 80-97 Mean Corpuscular Hemoglobin 31 pg Normal 27-31 Mean Corpuscular HGB Conc 34 g/dL Normal 31-36 Red Cell Distribution Width 14 % Normal 10-15 Platelet Count 333 10^3/uL Normal 150-450 Mean Platelet Volume 7.9 fL Normal 7.4-10.4 PNL No 02/04/2019 [facility] Rubella Screen Equivocal Immune 35 [place] [address] IgG [phone] Hemoglobin A1c 5.3 % Normal 4.0-5.6 36 Hepatitis B Surface Antigen Nonreactive Nonreactive 37 Syphillis Igg W/Reflex RPR Negative Negative 38 1 [id number] 2 [id number] 3 [id number] 4 Results suggest response to immunization or prior exposure to the virus. REFERENCE VALUE Vaccinated: Positive (>=1.1 AI) Unvaccinated: Negative (<=0.8 AI) 5 Test Performed by: [facility] [address] [place] [address] Paper Bundler: Sampson Felix M.D. Ph.D.; CLIA# [id number] 6 [id number] The specimen was tested at the listed cutoffs: Drug Class Test level (ng/mL) Hydrocodone 300 Oxycodone 100 Fentanyl 1 Methadone 150 Buprenorphine 5 Amphetamines 500 Barbiturates 200 Benzodiazepines 200 Cocaine 150 Cannabinoids 50 Opiates 300 PCP 25 Specimen was received without chain of custody. Results should be used for medical purposes only. 8 [id number] 9 SEE RESULT BELOW Name: MAGDALENA BLAKELYCHRISTY : [address]: Tayo Keane DO Acct: [id number] Unit: [id number] AGE: 38 Location: [facility] Re03/04/19 SEX: F Status: REG REF SPEC: [id number] BETO: 03/04/19-[address]: Tayo Keane DO REQ: [id number] RECD: 03/04/19 STATUS: COMP _ SOURCE: URINE SPDESC: ORDERED: Urine Culture COMMENTS: [id number] Urine Source: Random Procedure Result Reported Site Urine Culture Final 03/05/19- 1449 ML No Growth (<1,000 CFU/mL) * ML - Main Lab . END OF REPORT DEPARTMENT OF PATHOLOGY, [address] [place] [address] Abdullahi Deng M.D. Director [facility] # [id number] 10 [id number] 11 SEE RESULT BELOW Name: CHRISTY LAWRENCE : [address]: Caroline Grande CNM Acct: [id number] Unit: [id number] AGE: 38 Location: [facility] Re02/09/19 SEX: F Status: REG REF SPEC: [id number] BETO: 02/09/19-[address] [facility] [address]: Caroline Grande [facility] REQ: [id number] RECD: 02/09/19 STATUS: SOUT _ ORDERED: TP IMAGE ANALYS, HPV/Thin Prep COMMENTS: [id number] FINAL DIAGNOSIS Negative for Intraepithelial lesion or [...] CONTINUED ON NEXT PAGE DEPARTMENT OF PATHOLOGY, [address] [place] [address] Abdullahi Deng M.D. Director [facility] # [id number] CYTOLOGY PATIENT INFORMATION Patient Information: HPV: High risk HPV RNA testing regardless of pap results. Actual Specimen Date: 02/09/19 Last Menstrual Date: 10/11/18 ?: Y Signed by and Reported on: Lelia TIFFANIE Steele(ASCP) 1527 This Pap test was evaluated with the assistance of the Supertecp Test Imaging System. Due to cytologic findings at the gas pump attendant microscope, comprehensive manual rescreening by a Channel Machine Operator may be required. The Pap Smear is [...] years. END OF REPORT DEPARTMENT OF PATHOLOGY, [address] [place] [address] Abdullahi Deng M.D. Director [facility] # [id number] 12 As with all diagnostic procedures, the [...] [Sabine robert al. The [employer]. [place], [place]. August 11-2016]. However, ???some samples will not [...] appropriate. The Panorama test was developed by [facility] a laboratory certified under the Clinical Laboratory Improvement Amendments (CLIA). This test has not been cleared or approved by the U.S, Food and Drug Administration (FDA). 20 Please refer to the attached PDF report 21 Test performed by [facility]. [address] [place] [address] CLIA ID #[id number] Tia Pate Ph.D., [facility], [employer] 22 IF THE ORDERING PROVIDER HAS QUESTIONS OR WISHES TO DISCUSS THE RESULTS, PLEASE CONTACT US AT [phone] #3. Ask for the [facility] genetic counselor escalation engineer. 23 [id number] 24 REVISED RESULTS PREVIOUSLY REPORTED 08/05/19 (Reported [...] developed and its performance characteristics determined by [facility] in a manner consistent with CLIA requirements. This test has not been cleared or approved by the U.S. Food and Drug Administration. Test Performed by: [place] [address] Paper Bundler: Sampson Felix M.D. Ph.D.; CLIA# [id number] 30 REVISED RESULTS This is a corrected version of the report produced on 02/09/19. PREVIOUSLY REPORTED DNR (Reported 02/09/2019 16:45) 31 RESULT: REVISED RESULTS PREVIOUSLY REPORTED DNR (Reported 02/09/2019 16:45) 32 REVISED RESULTS PREVIOUSLY REPORTED DNR (Reported 02/09/2019 16:45) 33 ADDITIONAL INFORMATION Testing performed by Inductively Coupled Plasma-Mass Spectrometry (ICP-MS). This test was developed and its performance characteristics determined by [facility] in a manner consistent with CLIA requirements. This test has not been cleared or approved by the U.S. Food and Drug Administration. 34 Test Performed by: [place] [address] Paper Bundler: Sampson Felix M.D. Ph.D.; CLIA# [id number] 35 [id number] 36 Therapeutic target for the treatment of diabetes mellitus patients is <7% HBA1C, and in selective patients <6.0%. Please refer to [employer] diabetic care guidelines for further information. 37 [id number] 38 [id number] Procedures Date Code Description Status 05/28/2019 31784 Biophysical Profile Without Non Stress Test Completed 05/28/2019 43429 Ultrasound,Transvaginal Completed 05/28/2019 15346 Echography Uterus Follow-Up Or Repeat Completed 04/29/2019 78329 Echography Uterus Follow-Up Or Repeat Completed 03/04/2019 34479 Echography Uterus Complete Completed 02/04/2019 81181 Echography Uterus Limited Completed Medical Devices Description No Information Available Encounters Type Date Location Provider Dx Diagnosis Office Visit 02/04/2019 [facility] Office Tayo Keane JR, DO O26.92 related [...] 04/01/2019 O09.522 Supervision of elderly multigravida, Gabriela Cliff, [facility] second trimester 03/04/2019 Z36.3 Encounter for screening for Tayo Keane JR, DO malformations 03/04/2019 O44.22 Partial placenta previa NOS or without Tayo Keane JR, DO hemorrhage, second trimester 03/04/2019 Z36.3 Encounter for screening for Ultrasounds malformations 02/09/2019 O09.522 Supervision of elderly multigravida, Caroline Holguinmarlee Grande , [facility] second trimester 02/04/2019 Z34.82 Encounter for supervision [...] 8:20 am - Rian Gilliam M.D. at [facility]06/17/2019 8:15 am - Tayo Keane JR, DO at [facility]06/10/2019 8:15 am - Tayo Keane JR DO at [facility]06/04/2019 8:15 am - Shanna Sanchez MD at [facility]02/04/2019 - Tayo Keane JR, DOZ34.82 Encounter for supervision of other normal , second ytdvoywjoV01.92 related conditions, unspecified, second trimesterComments:SIUP at 16w4d, no care to dateHx of x 2, uncomplicatedWill collect all labs today including NIPT and MSAFPRTO for complete NOB ASAPUSN WNL with the exception of a low lying placenta - re-assess at 28 weeks for exstowckyhH10.42 Low lying placenta NOS or without hemorrhage, second trimesterComments:LLP/Marginal Previare-assess at 28 weeks for resolutionPelvic rest advisedBleeding precautions carefully reviewed Functional Status Description No Information Available Mental Status Description No Information Available Referrals Description No Information Available
--- OUTSIDE RECORDS SUMMARY | 2019-07-01 06:02 | XMS REPORT | Continuity of Care Document ---
:1980 External Reference #:[id number] Author Name Shanna Sanchez MD Address [address] [place] [address] Care Team Providers Name Role Phone [facility] Team Information Lens Maker [phone] Problems Description No Information Available Social History [...] Mass Index) 29.4 kg/m2 Last Menstrual Period 4844485 3 Parity 2 02/04/2019 2:22pm BP Systolic 122 mmHg BP Diastolic 64 mmHg Weight 139.00 lb Last Menstrual Period 3804520 3 Parity 2 Results Test Acquired Date Facility Test Result H/L Range Note Laboratory test 05/13/2019 [facility] Glucose 1 HR 115 mg/dL Normal 70-160 1, 2 [place] [address] Post Prandial [phone] CBC With No 05/13/2019 [facility] White Blood 7.2 Normal 3.5- 10.8 [place] [address] Count 10^3/uL [phone] Red Blood Count 3.75 10^6/uL Normal 3.70-4.87 Hemoglobin 11.5 g/dL Low 12.0-16.0 Hematocrit 33 % Low 35-47 Mean Corpuscular Volume 88 fL Normal 80-97 Mean Corpuscular Hemoglobin 31 pg Normal 27-31 Mean Corpuscular HGB Conc 35 g/dL Normal 31-36 Red Cell Distribution Width 14 % Normal 10-15 Platelet Count 289 10^3/uL Normal 150-450 Mean Platelet Volume 7.8 fL Normal 7.4-10.4 Laboratory test 05/13/2019 [facility] Rubella Screen Equivocal Immune [address] [place] [address] IgG [phone] Varicella Zoster 05/13/2019 [facility] Varicella-Zost Positive [address] [place] [address] er IgG [phone] Antibody Varicella IgG Antibody Index 1.7 5 Drug Screen 04/01/2019 [facility] Urine None Detected None Detect 6 [place] [address] Hydrocodone Clinic [phone] Screen Urine Oxycodone Screen None Detected None [...] None Detect 7 Urine Culture And 03/04/2019 [facility] Urine Culture SEE RESULT 8, 9 [place] [address] BELOW [phone] Laboratory test 02/09/2019 [facility] Cytology SEE RESULT 10, [address] [place] [address] BELOW [phone] GC/Chlamydia Dna 02/09/2019 [facility] GCCHL (SEE NOTE) [address] [place] [address] Disclaimer [phone] Chlamydia trachomatis Ken Negative Negative Neisseria gonorrhoeae (GC) Ken Negative Negative Panorama Test 02/04/2019 [facility] Report Summary See Notes Normal 13 Report Note See Notes Normal Trisomy 13 Age-Based Risk Fraction 03/1209 Normal Trisomy 13 Risk Score Text <1/10,000 (<0.01 <SEE NOTE> Normal 14 Trisomy 13 Risk Score Fraction <1/48539 Normal Trisomy 13 Result Text Low Risk Normal Trisomy 13 Result Comments See Notes Normal Trisomy 18 Age-Based Risk Fraction 1/393 Normal Trisomy 18 Risk Score Text <1/10,000 (<0.01 <SEE NOTE> Normal 15 Trisomy 18 Risk Score Fraction <1/80803 Normal Trisomy 18 Result Text Low Risk Normal Trisomy 18 Result Comments See Notes Normal Trisomy 21 Age-Based Risk Fraction 1/131 Normal Trisomy 21 Risk Score Text <1/10,000 (<0.01 <SEE NOTE> Normal 16 Trisomy 21 Risk Score Fraction <1/47837 Normal Trisomy 21 Result Text Low Risk Normal Trisomy 21 Result Comments See Notes Normal Monosomy X Age-Based Risk Fraction 1/568 Normal Monosomy X Risk Score <0.01 % Normal Monosomy X Risk Score Text <1/10,000 (<0.01 <SEE NOTE> Normal 17 Monosomy X Risk Score Fraction <1/00321 Normal Monosomy X Result Text Low Risk Normal Monosomy X Result Comments See Notes Normal Triploidy Result Text Low Risk Normal Triploidy Result Comments See Notes Normal Gender of Fetus Male Fraction (in %) 8.7 % Fraction 8.7% Footnotes See Notes 18 Boiler Plate Text See Notes 19 References See Notes 20 Approvals See Notes 21 Contacts See Notes 22 Afp,Screen Maternal 02/04/2019 [facility] Collection Date [address] [place] [address] [phone] Maternal Date of 80 Calculated Age At [...] MoM <2.50 32 HIV 1&2 p24 02/04/2019 [facility] HIV 4th Nonreactive Nonreactive Screen [address] [phone] Lead 02/04/2019 [facility] Lead,Venous, B 1.4 g/dL 0.0-4.9 [address] [place] [address] [phone] Venous/Capillary Venous Submitting Laboratory Phone [phone] Type And Screen 02/04/2019 [facility] Patient [place] [address] [phone] Antibody Screen NEGATIVE CBC With No 02/04/2019 [facility] White Blood 7.2 10^3/uL Normal 3.5-10.8 [place] [address] Count [phone] Red Blood Count 4.16 10^6/uL Normal 3.70-4.87 Hemoglobin 12.9 g/dL Normal 12.0-16.0 Hematocrit 38 % Normal 35-47 Mean Corpuscular Volume 90 fL Normal 80-97 Mean Corpuscular Hemoglobin 31 pg Normal 27-31 Mean Corpuscular HGB Conc 34 g/dL Normal 31-36 Red Cell Distribution Width 14 % Normal 10-15 Platelet Count 333 10^3/uL Normal 150-450 Mean Platelet Volume 7.9 fL Normal 7.4-10.4 PNL No 02/04/2019 [facility] Rubella Screen Equivocal Immune [address] [place] [address] IgG [phone] Hemoglobin A1c 5.3 % Normal 4.0-5.6 36 Hepatitis B Surface Antigen Nonreactive Nonreactive 37 Syphillis Igg W/Reflex RPR Negative Negative 38 1 [id number] 2 [id number] 3 [id number] 4 Results suggest response to immunization or prior exposure to the virus. REFERENCE VALUE Vaccinated: Positive (>=1.1 AI) Unvaccinated: Negative (<=0.8 AI) 5 Test Performed by: [facility] [employer] [facility] [address] [place] [address] Press Clippings Cutter And Paster: Sampson Felix M.D. Ph.D.; CLIA# [id number] 6 [id number] The specimen was tested at the listed cutoffs: Drug Class Test level (ng/mL) Hydrocodone 300 Oxycodone 100 Fentanyl 1 Methadone 150 Buprenorphine 5 Amphetamines 500 Barbiturates 200 Benzodiazepines 200 Cocaine 150 Cannabinoids 50 Opiates 300 PCP 25 Specimen was received without chain of custody. Results should be used for medical purposes only. 8 [id number] 9 SEE RESULT BELOW Name: MAGDALENA BLAKELYCHRISTY ALEKSANDRA : [address]: Tayo Keane DO Acct: [id number] Unit: [id number] AGE: 38 Location: [facility] Re03/04/19 SEX: F Status: REG REF SPEC: [id number] BETO: 03/04/19-[address]: Tayo Keane DO REQ: [id number] RECD: 03/04/19 STATUS: COMP _ SOURCE: URINE SPDESC: ORDERED: Urine Culture COMMENTS: [id number] Urine Source: Random Procedure Result Reported Site Urine Culture Final 03/05/19- 1449 ML No Growth (<1,000 CFU/mL) * ML - Main Lab . END OF REPORT DEPARTMENT OF PATHOLOGY, [address] [place] [address] Abdullahi Deng M.D. Director [facility] # [id number] 10 [id number] 11 SEE RESULT BELOW Name: CHRISTY LAWRENCE : [address]: Caroline Grande CNM Acct: [id number] Unit: [id number] AGE: 38 Location: [facility] Re02/09/19 SEX: F Status: REG REF SPEC: [id number] BETO: 02/09/19-1028 [facility] DR: Caroline Grande [facility] REQ: [id number] RECD: 02/09/19 STATUS: SOUT _ ORDERED: TP IMAGE ANALYS, HPV/Thin Prep COMMENTS: [id number] FINAL DIAGNOSIS Negative for Intraepithelial lesion or [...] CONTINUED ON NEXT PAGE DEPARTMENT OF PATHOLOGY, [address] [place] [address] Abdullahi Deng M.D. Director [facility] # [id number] CYTOLOGY PATIENT INFORMATION Patient Information: HPV: High risk HPV RNA testing regardless of pap results. Actual Specimen Date: 02/09/19 Last Menstrual Date: 10/11/18 ?: Y Signed by and Reported on: TIFFANIE Wood(ASCP) 1527 This Pap test was evaluated with the assistance of the BlueSprigPrep Test Imaging System. Due to cytologic findings at the evp global product leadership microscope, comprehensive manual rescreening by a Wet Finisher Wool may be required. The Pap Smear is [...] years. END OF REPORT DEPARTMENT OF PATHOLOGY, [address] [place] [address] Abdullahi Deng M.D. Director [facility] # [id number] 12 As with all diagnostic procedures, the [...] et al. The [employer]. [place], [place]. August 11-2016]. However, ???some samples will not [...] appropriate. The Panorama test was developed by [facility] [facility] a laboratory certified under the Clinical Laboratory Improvement Amendments (CLIA). This test has not been cleared or approved by the U.S, Food and Drug Administration (FDA). 20 Please refer to the attached PDF report 21 Test performed by [employer] [facility]. [address] [place] [address] CLIA ID #[id number] Tia Pate Ph.D., [facility], Prism Inspector 22 IF THE ORDERING PROVIDER HAS QUESTIONS OR WISHES TO DISCUSS THE RESULTS, PLEASE CONTACT US AT [phone] #3. Ask for the [facility] genetic counselor condenser tube tender. 23 [id number] 24 REVISED RESULTS PREVIOUSLY REPORTED 08/05/19 (Reported [...] developed and its performance characteristics determined by [facility] in a manner consistent with CLIA requirements. This test has not been cleared or approved by the U.S. Food and Drug Administration. Test Performed by: [facility] [place] [address] Press Clippings Cutter And Paster: Sampson Felix M.D. Ph.D.; CLIA# [id number] 30 REVISED RESULTS This is a corrected version of the report produced on 02/09/19. PREVIOUSLY REPORTED DNR (Reported 02/09/2019 16:45) 31 RESULT: REVISED RESULTS PREVIOUSLY REPORTED DNR (Reported 02/09/2019 16:45) 32 REVISED RESULTS PREVIOUSLY REPORTED DNR (Reported 02/09/2019 16:45) 33 ADDITIONAL INFORMATION Testing performed by Inductively Coupled Plasma-Mass Spectrometry (ICP-MS). This test was developed and its performance characteristics determined by [facility] in a manner consistent with CLIA requirements. This test has not been cleared or approved by the U.S. Food and Drug Administration. 34 Test Performed by: [facility] [place] [address] Press Clippings Cutter And Paster: Sampson Felix M.D. Ph.D.; CLIA# [id number] 35 [id number] 36 Therapeutic target for the treatment of diabetes mellitus patients is <7% HBA1C, and in selective patients <6.0%. Please refer to [employer] diabetic care guidelines for further information. 37 [id number] 38 [id number] Procedures Date Code Description Status 05/28/2019 62601 Biophysical Profile Without Non Stress Test Completed 05/28/2019 82805 Ultrasound,Transvaginal Completed 05/28/2019 93061 Echography Uterus Follow-Up Or Repeat Completed 04/29/2019 38053 Echography Uterus Follow-Up Or Repeat Completed 03/04/2019 22047 Echography Uterus Complete Completed 02/04/2019 72030 Echography Uterus Limited Completed Medical Devices Description No Information Available Encounters Type Date Location Provider Dx Diagnosis Office Visit 02/04/2019 [facility] Office Tayo Keane JR, DO O26.92 related 3:45p conditions, unspecified, second trimester O44.42 Low lying placenta NOS or without hemor, second trimester Assessments Date Code Description Provider 06/04/2019 O44.23 Partial placenta previa NOS or without Shanna Sanchez MD hemorrhage, third trimester 06/04/2019 O09.523 Supervision of elderly chuchogravida, Shanna Sanchez MD third trimester 05/28/2019 O44.13 Complete placenta previa [...] O09.522 Supervision of elderly multigravida, Gabriela Coronado, [facility] second trimester 03/04/2019 Z36.3 Encounter for screening for Tayo Keane JR, DO malformations 03/04/2019 O44.22 Partial placenta previa NOS or without Tayo Keane JR, DO hemorrhage, second trimester 03/04/2019 Z36.3 Encounter for screening for Ultrasounds malformations 02/09/2019 O09.522 Supervision of elderly multigravida, Caroline Teodora Grande , [facility] second trimester 02/04/2019 Z34.82 Encounter for supervision of other normal Tayo Keane JR DO , second trimester 02/04/2019 O26.92 related conditions, Tayo Keane JR, DO unspecified, second trimester 02/04/2019 Z34.82 Encounter for supervision of other normal Ultrasounds , second trimester 02/04/2019 O44.42 Low lying placenta NOS or without Tayo Lakhwinder HERNANDEZ, DO hemorrhage, second trimester Plan of Treatment Future Appointment(s):06/26/2019 8:20 am - Rian Gilliam M.D. at [facility]06/17/2019 8:15 am - Tayo Keane JR, DO at [facility]06/10/2019 8:15 am - Tayo Keane JR, DO at [facility]02/04/2019 - Tayo Keane JR DOZ34.82 Encounter for supervision of other normal , second pgscbatrvR20.92 related conditions, unspecified, second trimesterComments:SIUP at 16w4d, no care to dateHx of x 2, uncomplicatedWill collect all labs today including NIPT and MSAFPRTO for complete NOB ASAPUSN WNL with the exception of a low lying placenta - re-assess at 28 weeks for [id number] Low lying placenta NOS or without hemorrhage, second trimesterComments:LLP/Marginal Previare-assess at 28 weeks for resolutionPelvic rest advisedBleeding precautions carefully reviewed Functional Status Description No Information Available Mental Status Description No Information Available Referrals Description No Information Available
--- OUTSIDE RECORDS SUMMARY | 2019-07-01 06:02 | XMS REPORT | Continuity of Care Document ---
:1980 External Reference #:[id number] Author Name Shanna Sanchez MD (transmitted by agent of provider Sandy Jackson) Address [address] [place] [address] Care Team Providers Name Role Phone [facility] [place] Care Team Information Insulating Machine Operator [phone] Problems Description No Information Available Social History [...] CPT Code Status Date Vaccine Lot # [id number] Given 06/04/2019 Tetnus, Diptheria Toxoids And Acellular Pertussis, 2KK23 PT > 7Yrs Old Vital Signs Date Vital Result Comment 02/09/2019 9:33am BP Systolic 100 mmHg BP Diastolic 52 mmHg Height 57 inches 4'9" Weight 136.00 lb BMI (Body Mass Index) 29.4 kg/m2 Last Menstrual Period 2259073 3 Parity 2 02/04/2019 2:22pm BP Systolic 122 mmHg BP Diastolic 64 mmHg Weight 139.00 lb Last Menstrual Period 7047795 3 Parity 2 Results Test Acquired Date Facility Test Result H/L Range Note Laboratory test 05/13/2019 [facility] Glucose 1 HR 115 mg/dL Normal 70-160 1, 2 [place] [address] Post Prandial [phone] CBC With No 05/13/2019 [facility] White Blood 7.2 Normal 3.5- 10.8 [place] [address] Count 10^3/uL [phone] Red Blood Count 3.75 10^6/uL Normal 3.70-4.87 Hemoglobin 11.5 g/dL Low 12.0-16.0 Hematocrit 33 % Low 35-47 Mean Corpuscular Volume 88 fL Normal 80-97 Mean Corpuscular Hemoglobin 31 pg Normal 27-31 Mean Corpuscular HGB Conc 35 g/dL Normal 31-36 Red Cell Distribution Width 14 % Normal 10-15 Platelet Count 289 10^3/uL Normal 150-450 Mean Platelet Volume 7.8 fL Normal 7.4-10.4 Laboratory test 05/13/2019 [facility] Rubella Screen Equivocal Immune 3 [place] [address] IgG [phone] Varicella Zoster 05/13/2019 [facility] Varicella-Zost Positive 4 [place] [address] er IgG [phone] Antibody Varicella IgG Antibody Index 1.7 5 Drug Screen 04/01/2019 [facility] Urine None Detected None Detect 6 [place] [address] Hydrocodone Clinic [phone] Screen Urine Oxycodone Screen None Detected None [...] None Detect 7 Urine Culture And 03/04/2019 [facility] Urine Culture SEE RESULT 8, 9 [place] [address] BELOW [phone] Laboratory test 02/09/2019 [facility] Cytology SEE RESULT 10, 11 [place] [address] BELOW [phone] GC/Chlamydia Dna 02/09/2019 [facility] GCCHL (SEE NOTE) 12 [place] [address] Disclaimer [phone] Chlamydia trachomatis Ken Negative Negative Neisseria gonorrhoeae (GC) Ken Negative Negative Panorama Test 02/04/2019 [facility] Report Summary See Notes Normal 13 Report Note See Notes Normal Trisomy 13 Age-Based Risk Fraction 03/1209 Normal Trisomy 13 Risk Score Text <1/10,000 (<0.01 <SEE NOTE> Normal 14 Trisomy 13 Risk Score Fraction <1/62957 Normal Trisomy 13 Result Text Low Risk Normal Trisomy 13 Result Comments See Notes Normal Trisomy 18 Age-Based Risk Fraction 1/393 Normal Trisomy 18 Risk Score Text <1/10,000 (<0.01 <SEE NOTE> Normal 15 Trisomy 18 Risk Score Fraction <1/76345 Normal Trisomy 18 Result Text Low Risk Normal Trisomy 18 Result Comments See Notes Normal Trisomy 21 Age-Based Risk Fraction 1/131 Normal Trisomy 21 Risk Score Text <1/10,000 (<0.01 <SEE NOTE> Normal 16 Trisomy 21 Risk Score Fraction <1/83670 Normal Trisomy 21 Result Text Low Risk Normal Trisomy 21 Result Comments See Notes Normal Monosomy X Age-Based Risk Fraction 1/568 Normal Monosomy X Risk Score <0.01 % Normal Monosomy X Risk Score Text <1/10,000 (<0.01 <SEE NOTE> Normal 17 Monosomy X Risk Score Fraction <1/17335 Normal Monosomy X Result Text Low Risk Normal Monosomy X Result Comments See Notes Normal Triploidy Result Text Low Risk Normal Triploidy Result Comments See Notes Normal Gender of Fetus Male Fraction (in %) 8.7 % Fraction 8.7% Footnotes See Notes 18 Boiler Plate Text See Notes 19 References See Notes 20 Approvals See Notes 21 Contacts See Notes 22 Afp,Screen Maternal 02/04/2019 [facility] Collection Date [address] [place] [address] [phone] Maternal Date of 80 Calculated Age At [...] MoM <2.50 32 HIV 1&2 p24 02/04/2019 [facility] HIV 4th Nonreactive Nonreactive Screen [place] [address] Generation [phone] Lead 02/04/2019 [facility] Lead,Venous, B 1.4 g/dL 0.0-4.9 33 [place] [address] [phone] Venous/Capillary Venous Submitting Laboratory Phone [phone] Type And Screen 02/04/2019 [facility] Patient Blood Type O Positive [place] [address] [phone] Antibody Screen NEGATIVE CBC With No 02/04/2019 [facility] White Blood 7.2 10^3/uL Normal 3.5-10.8 Diff [place] [address] Count [phone] Red Blood Count 4.16 10^6/uL Normal 3.70-4.87 Hemoglobin 12.9 g/dL Normal 12.0-16.0 Hematocrit 38 % Normal 35-47 Mean Corpuscular Volume 90 fL Normal 80-97 Mean Corpuscular Hemoglobin 31 pg Normal 27-31 Mean Corpuscular HGB Conc 34 g/dL Normal 31-36 Red Cell Distribution Width 14 % Normal 10-15 Platelet Count 333 10^3/uL Normal 150-450 Mean Platelet Volume 7.9 fL Normal 7.4-10.4 PNL No 02/04/2019 [facility] Rubella Screen Equivocal Immune 35 [place] [address] IgG [phone] Hemoglobin A1c 5.3 % Normal 4.0-5.6 36 Hepatitis B Surface Antigen Nonreactive Nonreactive 37 Syphillis Igg W/Reflex RPR Negative Negative 38 1 [id number] 2 [id number] 3 [id number] 4 Results suggest response to immunization or prior exposure to the virus. REFERENCE VALUE Vaccinated: Positive (>=1.1 AI) Unvaccinated: Negative (<=0.8 AI) 5 Test Performed by: [facility] [address] [place] [address] Manager Recruitment: Sampson Felix M.D. Ph.D.; [facility]# [id number] 6 [id number] 7 The specimen was tested at the listed cutoffs: Drug Class Test level (ng/mL) Hydrocodone 300 Oxycodone 100 Fentanyl 1 Methadone 150 Buprenorphine 5 Amphetamines 500 Barbiturates 200 Benzodiazepines 200 Cocaine 150 Cannabinoids 50 Opiates 300 PCP 25 Specimen was received without chain of custody. Results should be used for medical purposes only. 8 [id number] 9 SEE RESULT BELOW Name: CHRISTY LAWRENCE : [address]: Tayo Keane DO Acct: [id number] Unit: [id number] AGE: 38 Location: [facility] Re03/04/19 SEX: F Status: REG REF SPEC: [id number] BETO: 03/04/[address]: Tayo Keane DO REQ: [id number] RECD: 03/04/19 STATUS: COMP _ SOURCE: URINE SPDESC: ORDERED: Urine Culture COMMENTS: [id number] Urine Source: Random Procedure Result Reported Site Urine Culture Final 03/05/19- 1449 ML No Growth (<1,000 CFU/mL) * ML - Main Lab . END OF REPORT DEPARTMENT OF PATHOLOGY, [address] [place] [address] Abdullahi Deng M.D. Director [facility] # [id number] 10 [id number] 11 SEE RESULT BELOW Name: CHRISTY LAWRENCE : [address]: Caroline Grande CNM Acct: [id number] Unit: [id number] AGE: 38 Location: [facility] Re02/09/19 SEX: F Status: REG REF SPEC: [id number] BETO: 02/09/19-[address] [facility] [address]: Caroline Grande [facility] REQ: [id number] RECD: 02/09/19 STATUS: SOUT _ ORDERED: TP IMAGE ANALYS, HPV/Thin Prep COMMENTS: [id number] FINAL DIAGNOSIS Negative for Intraepithelial lesion or [...] CONTINUED ON NEXT PAGE DEPARTMENT OF PATHOLOGY, [address] [place] [address] Abdullahi Deng M.D. Director [facility] # [id number] CYTOLOGY PATIENT INFORMATION Patient Information: HPV: High risk HPV RNA testing regardless of pap results. Actual Specimen Date: 02/09/19 Last Menstrual Date: 10/11/18 ?: Y Signed by and Reported on: TIFFANIE Wood(ASCP) 1527 This Pap test was evaluated with the assistance of the [employer] Test Imaging System. Due to cytologic findings at the reinsurance claims analyst microscope, comprehensive manual rescreening by a Manager Customer Service may be required. The Pap Smear is [...] years. END OF REPORT DEPARTMENT OF PATHOLOGY, [address] [place] [address] Abdullahi Deng M.D. Director [facility] # [id number] 12 As with all diagnostic procedures, the [...] [Sabine et al. The Human [employer]etics Conference. [place], [place]. August 11-2016]. However, ???some samples will not [...] appropriate. The Panorama test was developed by [facility] a laboratory certified under the Clinical Laboratory Improvement Amendments (CLIA). This test has not been cleared or approved by the U.S, Food and Drug Administration (FDA). 20 Please refer to the attached PDF report 21 Test performed by [facility]. [address] [place] [address] CLIA ID #[id number] Tia Pate Ph.D., [facility], Investigation Officer 22 IF THE ORDERING PROVIDER HAS QUESTIONS OR WISHES TO DISCUSS THE RESULTS, PLEASE CONTACT US AT [phone] #3. Ask for the [facility] genetic counselor supervisor of communications. 23 [id number] 24 REVISED RESULTS PREVIOUSLY REPORTED 08/05/19 (Reported [...] developed and its performance characteristics determined by [facility] in a manner consistent with CLIA requirements. This test has not been cleared or approved by the U.S. Food and Drug Administration. Test Performed by: [facility] [employer] [address] [place] [address] Manager Recruitment: Sampson Felix M.D. Ph.D.; CLIA# [id number] 30 REVISED RESULTS This is a corrected version of the report produced on 02/09/19. PREVIOUSLY REPORTED DNR (Reported 02/09/2019 16:45) 31 RESULT: REVISED RESULTS PREVIOUSLY REPORTED DNR (Reported 02/09/2019 16:45) 32 REVISED RESULTS PREVIOUSLY REPORTED DNR (Reported 02/09/2019 16:45) 33 ADDITIONAL INFORMATION Testing performed by Inductively Coupled Plasma-Mass Spectrometry (ICP-MS). This test was developed and its performance characteristics determined by [facility] in a manner consistent with CLIA requirements. This test has not been cleared or approved by the U.S. Food and Drug Administration. 34 Test Performed by: [facility] [employer] [address] [place], [place] [id number] Manager Recruitment: Sampson Felix M.D. Ph.D.; CLIA# [id number] 35 [id number] 36 Therapeutic target for the treatment of diabetes mellitus patients is <7% HBA1C, and in selective patients <6.0%. Please refer to [employer] diabetic care guidelines for further information. 37 [id number] 38 [id number] Procedures Date Code Description Status 05/28/2019 89847 Biophysical Profile Without Non Stress Test Completed 05/28/2019 87168 Ultrasound,Transvaginal Completed 05/28/2019 41370 Echography Uterus Follow-Up Or Repeat Completed 04/29/2019 56944 Echography Uterus Follow-Up Or Repeat Completed 03/04/2019 69697 Echography Uterus Complete Completed 02/04/2019 17350 Echography Uterus Limited Completed Medical Devices Description No Information Available Encounters Type Date Location Provider Dx Diagnosis Office Visit 02/04/2019 [facility] Office Tayo Keane JR, DO [...] Z36.3 Encounter for screening for Tayo Keane JR DO malformations 03/04/2019 O44.22 Partial placenta previa [...] lying placenta NOS or without Tayo Keane JR DO hemorrhage, second trimester Plan of Treatment Future Appointment(s):06/22/2019 2:30 pm - Caroline Grande CNM at [facility]06/22/2019 2:00 pm - Ultrasounds at [facility]06/26/2019 8:20 am - Rian Gilliam M.D. at [facility]02/04/2019 - Tayo Keane JR DOZ34.82 Encounter for supervision of other normal , second prmadwzccG64.92 related conditions, unspecified, second trimesterComments:SIUP at 16w4d, no care to dateHx of x 2, uncomplicatedWill collect all labs today including NIPT and MSAFPRTO for complete NOB ASAPUSN WNL with the exception of a low lying placenta - re-assess at 28 weeks for ryssmztahrL36.42 Low lying placenta NOS or without hemorrhage, second trimesterComments:LLP/Marginal Previare-assess at 28 weeks for resolutionPelvic rest advisedBleeding precautions carefully reviewed Functional Status Description No Information Available Mental Status Description No Information Available Referrals Description No Information Available
--- OUTSIDE RECORDS SUMMARY | 2019-07-01 06:02 | XMS REPORT | Continuity of Care Document ---
:1980 External Reference #:[id number] Author Name Rian Gilliam M.D. (transmitted by agent of provider Herman Contreras ) Address [address] [place] [address] Care Team Providers Name Role Phone [facility] [place] [facility] Team Information Entry Level Civil Engineer [phone] Problems Description No Information Available Social History [...] Mass Index) 29.4 kg/m2 Last Menstrual Period 0748156 3 Parity 2 02/04/2019 2:22pm BP Systolic 122 mmHg BP Diastolic 64 mmHg Weight 139.00 lb Last Menstrual Period 5116583 3 Parity 2 Results Test Acquired Date Facility Test Result H/L Range Note Laboratory test 05/13/2019 [facility] Glucose 1 HR 115 mg/dL Normal 70-160 1, 2 [place] [address] Post Prandial [phone] CBC With No 05/13/2019 [facility] White Blood 7.2 Normal 3.5- 10.8 [place] [address] Count 10^3/uL [phone] Red Blood Count 3.75 10^6/uL Normal 3.70-4.87 Hemoglobin 11.5 g/dL Low 12.0-16.0 Hematocrit 33 % Low 35-47 Mean Corpuscular Volume 88 fL Normal 80-97 Mean Corpuscular Hemoglobin 31 pg Normal 27-31 Mean Corpuscular HGB Conc 35 g/dL Normal 31-36 Red Cell Distribution Width 14 % Normal 10-15 Platelet Count 289 10^3/uL Normal 150-450 Mean Platelet Volume 7.8 fL Normal 7.4-10.4 Laboratory test 05/13/2019 [facility] Rubella Screen Equivocal Immune 3 [place] [address] IgG [phone] Varicella Zoster 05/13/2019 [facility] Varicella-Zost Positive 4 [place] [address] er IgG [phone] Antibody Varicella IgG Antibody Index 1.7 5 Drug Screen 04/01/2019 [facility] Urine None Detected None Detect 6 [place] [address] Hydrocodone Clinic [phone] Screen Urine Oxycodone Screen None Detected None [...] None Detect 7 Urine Culture And 03/04/2019 [facility] Urine Culture SEE RESULT 8, 9 [place] [address] BELOW [phone] Laboratory test 02/09/2019 [facility] Cytology SEE RESULT 10, 11 [place] [address] BELOW [phone] GC/Chlamydia Dna 02/09/2019 [facility] GCCHL (SEE NOTE) 12 [place] [address] Disclaimer [phone] Chlamydia trachomatis Ken Negative Negative Neisseria gonorrhoeae (GC) Ken Negative Negative Panorama Test 02/04/2019 [facility] Report Summary See Notes Normal 13 Report Note See Notes Normal Trisomy 13 Age-Based Risk Fraction 03/1209 Normal Trisomy 13 Risk Score Text <1/10,000 (<0.01 <SEE NOTE> Normal 14 Trisomy 13 Risk Score Fraction <1/39250 Normal Trisomy 13 Result Text Low Risk Normal Trisomy 13 Result Comments See Notes Normal Trisomy 18 Age-Based Risk Fraction 1/393 Normal Trisomy 18 Risk Score Text <1/10,000 (<0.01 <SEE NOTE> Normal 15 Trisomy 18 Risk Score Fraction <1/88119 Normal Trisomy 18 Result Text Low Risk Normal Trisomy 18 Result Comments See Notes Normal Trisomy 21 Age-Based Risk Fraction 1/131 Normal Trisomy 21 Risk Score Text <1/10,000 (<0.01 <SEE NOTE> Normal 16 Trisomy 21 Risk Score Fraction <1/93785 Normal Trisomy 21 Result Text Low Risk Normal Trisomy 21 Result Comments See Notes Normal Monosomy X Age-Based Risk Fraction 1/568 Normal Monosomy X Risk Score <0.01 % Normal Monosomy X Risk Score Text <1/10,000 (<0.01 <SEE NOTE> Normal 17 Monosomy X Risk Score Fraction <1/58678 Normal Monosomy X Result Text Low Risk Normal Monosomy X Result Comments See Notes Normal Triploidy Result Text Low Risk Normal Triploidy Result Comments See Notes Normal Gender of Fetus Male Fraction (in %) 8.7 % Fraction 8.7% Footnotes See Notes 18 Boiler Plate Text See Notes 19 References See Notes 20 Approvals See Notes 21 Contacts See Notes 22 Afp,Screen Maternal 02/04/2019 [facility] Collection Date [address] [id number] [phone] Maternal Date of 80 Calculated Age At [...] MoM <2.50 32 HIV 1&2 p24 02/04/2019 [facility] HIV 4th [place] [address] Generation [phone] Lead 02/04/2019 [facility] Lead,Venous, B 1.4 g/dL 0.0-4.9 [address] [place] [address] [phone] Venous/Capillary Venous Submitting Laboratory Phone [phone] Type And Screen 02/04/2019 [facility] Patient Blood [place] [address] [phone] Antibody Screen NEGATIVE CBC With No 02/04/2019 [facility] White Blood 7.2 10^3/uL Normal 3.5-10.8 [place] [address] Count [phone] Red Blood Count 4.16 10^6/uL Normal 3.70-4.87 Hemoglobin 12.9 g/dL Normal 12.0-16.0 Hematocrit 38 % Normal 35-47 Mean Corpuscular Volume 90 fL Normal 80-97 Mean Corpuscular Hemoglobin 31 pg Normal 27-31 Mean Corpuscular HGB Conc 34 g/dL Normal 31-36 Red Cell Distribution Width 14 % Normal 10-15 Platelet Count 333 10^3/uL Normal 150-450 Mean Platelet Volume 7.9 fL Normal 7.4-10.4 PNL No 02/04/2019 [facility] Rubella Screen Equivocal Immune 35 [place] [address] IgG [phone] Hemoglobin A1c 5.3 % Normal 4.0-5.6 36 Hepatitis B Surface Antigen Nonreactive Nonreactive 37 Syphillis Igg W/Reflex RPR Negative Negative 38 1 [id number] 2 [id number] 3 [id number] 4 Results suggest response to immunization or prior exposure to the virus. REFERENCE VALUE Vaccinated: Positive (>=1.1 AI) Unvaccinated: Negative (<=0.8 AI) 5 Test Performed by: [facility] [address] [place] [address] Stove Polisher: Sampson Felix M.D. Ph.D.; IA# [id number] 6 [id number] 7 The specimen was tested at the listed cutoffs: Drug Class Test level (ng/mL) Hydrocodone 300 Oxycodone 100 Fentanyl 1 Methadone 150 Buprenorphine 5 Amphetamines 500 Barbiturates 200 Benzodiazepines 200 Cocaine 150 Cannabinoids 50 Opiates 300 PCP 25 Specimen was received without chain of custody. Results should be used for medical purposes only. 8 [id number] 9 SEE RESULT BELOW Name: MAGDALENA BLAKELYVILMACHRISTY ALEKSANDRA : [address]: Tayo Keane DO Acct: [id number] Unit: [id number] AGE: 38 Location: [facility] Re03/04/19 SEX: F Status: REG REF SPEC: [id number] BETO: 03/04/19-[address] [facility] [address]: Tayo Keane DO REQ: [id number] RECD: 03/04/19 STATUS: COMP _ SOURCE: URINE SPDESC: ORDERED: Urine Culture COMMENTS: [id number] Urine Source: Random Procedure Result Reported Site Urine Culture Final 03/05/19- 1449 ML No Growth (<1,000 CFU/mL) * ML - Main Lab . END OF REPORT DEPARTMENT OF PATHOLOGY, [address] [place] [address] Abdullahi Deng M.D. Director [facility] # [id number] 10 [id number] 11 SEE RESULT BELOW Name: CHRISTY LAWRENCEMADY : [address]: Caroline Grande Salena Acct: [id number] Unit: [id number] AGE: 38 Location: [facility] Re02/09/19 SEX: F Status: REG REF SPEC: [id number] BETO: 02/09/[address] [facility] [address]: Caroline Grande [facility] REQ: [id number] RECD: 02/09/19 STATUS: SOUT _ ORDERED: TP IMAGE ANALYS, HPV/Thin Prep COMMENTS: [id number] FINAL DIAGNOSIS Negative for Intraepithelial lesion or [...] CONTINUED ON NEXT PAGE DEPARTMENT OF PATHOLOGY, [address] [place] [address] Abdullahi Deng M.D. Director CLIA # [id number] CYTOLOGY PATIENT INFORMATION Patient Information: HPV: High risk HPV RNA testing regardless of pap results. Actual Specimen Date: 02/09/19 Last Menstrual Date: 10/11/18 ?: Y Signed by and Reported on: Katelynericredd TIFFANIE Steele(ASCP) 1527 This Pap test was evaluated with the assistance of the [employer] Test Imaging System. Due to cytologic findings at the claims clerk microscope, comprehensive manual rescreening by a Pharmaceutical Representative may be required. The Pap Smear is [...] years. END OF REPORT DEPARTMENT OF PATHOLOGY, [address] [place] [address] Abdullahi Deng M.D. Director [facility] # [id number] 12 As with all diagnostic procedures, the [...] [Sabine et al. The Human Genetics Conference. [place], [place]. August 11-2016]. However, ???some samples will not [...] appropriate. The Panorama test was developed by [facility] a laboratory certified under the Clinical Laboratory Improvement Amendments (CLIA). This test has not been cleared or approved by the U.S, Food and Drug Administration (FDA). 20 Please refer to the attached PDF report 21 Test performed by [facility]. [address] [place] [address] CLIA ID #[id number] Tia Pate Ph.D., [facility], Forestry Supervisor 22 IF THE ORDERING PROVIDER HAS QUESTIONS OR WISHES TO DISCUSS THE RESULTS, PLEASE CONTACT US AT [phone] #3. Ask for the [facility] genetic counselor formulation technician. 23 [id number] 24 REVISED RESULTS PREVIOUSLY REPORTED 08/05/19 (Reported [...] developed and its performance characteristics determined by [facility] in a manner consistent with CLIA requirements. This test has not been cleared or approved by the U.S. Food and Drug Administration. Test Performed by: [facility] [place] [address] Stove Polisher: Sampson Felix M.D. Ph.D.; CLIA# [id number] 30 REVISED RESULTS This is a corrected version of the report produced on 02/09/19. PREVIOUSLY REPORTED DNR (Reported 02/09/2019 16:45) 31 RESULT: REVISED RESULTS PREVIOUSLY REPORTED DNR (Reported 02/09/2019 16:45) 32 REVISED RESULTS PREVIOUSLY REPORTED DNR (Reported 02/09/2019 16:45) 33 ADDITIONAL INFORMATION Testing performed by Inductively Coupled Plasma-Mass Spectrometry (ICP-MS). This test was developed and its performance characteristics determined by [facility] in a manner consistent with CLIA requirements. This test has not been cleared or approved by the U.S. Food and Drug Administration. 34 Test Performed by: [facility] [place] [address] Stove Polisher: Sampson Felix M.D. Ph.D.; CLIA# [id number] 35 [id number] 36 Therapeutic target for the treatment of diabetes mellitus patients is <7% HBA1C, and in selective patients <6.0%. Please refer to [place] [employer] diabetic care guidelines for further information. 37 [id number] 38 [id number] Procedures Date Code Description Status 05/28/2019 35939 Biophysical Profile Without Non Stress Test Completed 05/28/2019 01035 Ultrasound,Transvaginal Completed 05/28/2019 83855 Echography Uterus Follow-Up Or Repeat Completed 04/29/2019 49930 Echography Uterus Follow-Up Or Repeat Completed 03/04/2019 68447 Echography Uterus Complete Completed 02/04/2019 03244 Echography Uterus Limited Completed Medical Devices Description [...] 02/09/2019 O09.522 Supervision of elderly multigravida, Caroline Araiza Harjinder , ALEX second trimester 02/04/2019 Z34.82 Encounter for supervision of other normal Tayo Keane JR , DO , second trimester 02/04/2019 O26.92 related conditions, Tayo Keane JR, DO unspecified, second trimester 02/04/2019 Z34.82 Encounter for supervision of other normal Ultrasounds , second trimester 02/04/2019 O44.42 Low lying placenta NOS or without Tayo Keane JR, DO hemorrhage, second trimester Plan of Treatment 02/04/2019 - Tayo Keane JR, DOZ34.82 Encounter for supervision of other normal , second mjrmpgxjsS45.92 related conditions, unspecified, second trimesterComments:SIUP at 16w4d, no care to dateHx of x 2, uncomplicatedWill collect all labs today including NIPT and MSAFPRTO for complete NOB ASAPUSN WNL with the exception of a low lying placenta - re-assess at 28 weeks for wgudowpgoaT73.42 Low lying placenta NOS or without hemorrhage, second trimesterComments:LLP/Marginal Previare-assess at 28 weeks for resolutionPelvic rest advisedBleeding precautions carefully reviewed Functional Status Description No Information Available Mental Status Description No Information Available Referrals Description No Information Available
[2019-07-01 07:13] LABS: Urine Benzodiazepine Screen None Detected (None Detect); Urine Opiates Screen None Detected (None Detect)
[2019-07-01] MEDS ORDERED: ceFOXitin 2 GM IVPREMIX* 2 GM/50 ML BAG ONE (07:19)
[2019-07-01] MEDS ORDERED: Carboprost Tromethamine* 250 MCG INJ ONE (07:22)
[2019-07-01] MEDS ORDERED: OXYTOCIN* 10 UNITS/ML 1 ML VIAL ONE ×2 (07:53→08:34)
[2019-07-01] MEDS ORDERED: Morphine PF AMP (0.5MG/ML)* 5 MG/10 ML AMP ONE (07:53)
[2019-07-01] MEDS ORDERED: Bupivacaine 0.5% SDV PF* 30ML VIAL ONE (07:53)
[2019-07-01] MEDS ORDERED: ceFOXitin 2 GM IVPREMIX* 2 GM/50 ML BAG IVPB ONE (08:00)
[2019-07-01] MEDS ORDERED: Ketorolac INJ* 30 MG/ML 1 ML VIAL ONE (08:34)
[2019-07-01] MEDS ORDERED: fentaNYL* 50 MCG/ML 2 ML VIAL (100 MCG VIAL) IV PRN (08:37)
[2019-07-01] MEDS ORDERED: Naloxone* 0.4 MG/ML 1 ML VIAL IV PRN ×2 (08:37→08:38)
[2019-07-01] MEDS ORDERED: Ondansetron INJ* 2 MG/ML VIAL ONE (08:37)
[2019-07-01] MEDS ORDERED: Nalbuphine* 10 MG/ML 1 ML VIAL IV PRN (08:38)
[2019-07-01] MEDS ORDERED: Ondansetron INJ* 2 MG/ML VIAL IV PRN (08:38)
[2019-07-01] MEDS ORDERED: HYDROcodone/ACETAMIN 5-325 MG* 1 TAB PO PRN (08:38)
[2019-07-01] MEDS ORDERED: PROCHLORPERAZINE INJ 5 MG/ML 2 ML VIAL IV PRN (08:38)
[2019-07-01] MEDS ORDERED: diPHENhydraMINE IV* 50 MG/ML 1 ml VIAL (BENADRYL) IV PRN (08:38)
[2019-07-01] MEDS ORDERED: DiMENhydriNATE IV* 50 MG/ML VIAL IV PUSH PRN (08:38)
[2019-07-01] MEDS: Acetaminophen TAB* 325 MG PO SCH ×4 (09:00→22:11)
[2019-07-01] MEDS ORDERED: Influenza VAC *QUAD* 2019-20* 0.5 ML SYRINGE IM ONE (09:00)
[2019-07-01] MEDS ORDERED: Glycerin ADULT SUPP PR PRN (09:25)
[2019-07-01] MEDS ORDERED: Dibucaine 1% 28.35 GM TUBE PR PRN (09:25)
[2019-07-01] MEDS ORDERED: Witch Hazel PAD* JAR TOPICAL PRN (09:25)
[2019-07-01] MEDS ORDERED: Oxytocin in LR* 20 UNITS/1,000 ML BAG IVPB SCH (10:00)
[2019-07-01] MEDS: Ketorolac INJ* 30 MG/ML 1 ML VIAL IV SCH ×4 (10:00→22:11)
--- NOTE | 2019-07-01 11:12 | OP ---
OPERATIVE REPORT: DATE OF OPERATION: 07/01/19 DATE OF : [birth year] SURGEON: Oralia Ross MD BOX FEEDER: Shanna Sanchez MD ANESTHESIOLOGIST: Dr. Harrell. ANESTHESIA: Spinal. PRE-OP DIAGNOSES: Placenta previa, 38 and 3/7 weeks and primary section. POST-OP DIAGNOSES: Placenta previa, 38 and 3/7 weeks and primary section, delivered. OPERATIVE PROCEDURE: Primary low transverse section with vacuum assist for head delivery. ESTIMATED BLOOD LOSS: 600 cc. URINE OUTPUT: 300 cc of clear yellow urine. FLUIDS: 2200 cc of crystalloid. FINDINGS: Revealed a vertex male infant. Apgars 9 at 1 minute and 9 at 5 minutes. Placenta with pre via, right greater than left anterior and posterior previa. Normal-appearing tubes and ovaries bilate rally. Placenta was manually extracted, 3- vessel cord, and intact. COMPLICATIONS: None apparent. DISPOSITION: Stable to recovery room. DESCRIPTION OF PROCEDURE: The patient was placed in dorsal lithotomy position. The abdomen was prepp ed and draped in a sterile standard fashion. Anesthesia was tested to appropriate level. Incision w as made 2 fingerbreadths above the pubic symphysis with a scalpel. This was carried down through the fascia. Fascia was scored in the midline and extended laterally and superiorly using curved Chen sc issors, superiorly and inferiorly with blunt and sharp dissection. The peritoneum was then entered bluntly. Bladder blade was inserted. Lower uterine segment was identified. An Allis was u sed to tent up on the lower uterine segment. Incision was made with scalpel. This was carried down t hrough to membranes. The incision was extended laterally and superiorly using Chen scissors and blun tly. Amniotomy was created for clear fluid. Attempt was made at head delivery. The vacuum was then applied for delivery of the head. Anterior, posterior shoulder delivered. Cord was allowed to pulse for 1 minute, baby was vigorous, and crying on the operative field. The cord was then clamped, and then cut and the was handed off to awaiting safety leader. Appropriate cord blood was then ob tained. Placenta was then manually extracted and noted to be an anterior and posterior insertion, rig ht side predominant. The cavity was wiped clean, noted to be free of any membranes or placental tiss ue and the lower uterine segment was noted to be very vascular. Hemabate was given 250 mcg intramusc ularly into lower uterine segment. The uterus was then reapproximated in 2 layers, first layer runni ng locked 0 Vicryl, second layer running imbricated 0 Vicryl. Uterus was returned intraabdominally. Colic gutters were lavaged. Hemostasis was assured at the hysterotomy site. The peritoneum was the n reapproximated using 3-0 Vicryl in a running fashion. Subcutaneous tissue and subfascial area were lavaged. Hemostasis was assured. The fascia itself was then reapproximated using 0 Vicryl x2 in a running fashion. Subcuticular tissue was made hemostatic with Bovie coagulation and a 3-0 Camper's f ascia stitch was then placed in an interrupted fashion for closure of a space. A 4-0 Monocryl w as then placed in a subcuticular fashion. Mastisol and Steri's were applied. All sponge, instruments , and blade counts were correct throughout the case. The patient tolerated the procedure well and we nt to recovery room in stable condition. [id number]/[facility] #: [id number]
[2019-07-01] MEDS: Simethicone TAB* 80 MG TAB.CHEW PO SCH ×3 (12:30→22:11)
[2019-07-01] MEDS: Docusate CAP* 100 MG PO SCH ×2 (14:00→22:11)
[2019-07-02] MEDS ORDERED: oxyCODONE TAB* 5 MG TAB PO PRN ×2 (00:09)
[2019-07-02 06:15] LABS: ABS Eosinophils 0.1 10^3/ul (0-0.6); ABS Lymphocytes 1.2 10^3/ul (1.0-4.8); ABS Monocytes 0.5 10^3/ul (0-0.8); ABS Neutrophils 4.4 10^3/ul (1.5-7.7); Eosinophil % 1.4 %; Hematocrit 29 % (35-47); Hemoglobin 10.1 g/dL (12.0-16.0); Lymphocyte % 19.9 %; Mean Corpuscular HGB Conc 35 g/dL (31-36); Mean Corpuscular Hemoglobin 30 pg (27-31); Mean Corpuscular Volume 85 fL (80-97); Mean Platelet Volume 7.1 fL (7.4-10.4); Platelet Count 301 10^3/uL (150-450); Red Blood Count 3.41 10^6 /uL (3.70-4.87); Red Cell Distribution Width 14 % (10-15); White Blood Count 6.2 10^3/uL (3.5-10.8)
[2019-07-02] MEDS: Ketorolac INJ* 30 MG/ML 1 ML VIAL IV SCH (08:06)
[2019-07-02] MEDS: Simethicone TAB* 80 MG TAB.CHEW PO SCH ×4 (08:06→20:26)
[2019-07-02] MEDS: Ferrous Gluconate TAB* 324 MG TAB PO SCH ×2 (08:07→20:27)
[2019-07-02] MEDS: Docusate CAP* 100 MG PO SCH ×3 (08:07→20:27)
[2019-07-02] MEDS ORDERED: Measles, Mumps,Rubella VACC* 0.5 ML/VIAL SUBCUT ONE (09:00)
[2019-07-02] MEDS: Ibuprofen TAB* 600 MG PO PRN ×2 (14:24→20:24)
[2019-07-02] MEDS: Acetaminophen TAB* 325 MG PO PRN (18:19)
[2019-07-03] MEDS: Ibuprofen TAB* 600 MG PO PRN ×4 (03:19→21:59)
[2019-07-03] MEDS: Ferrous Gluconate TAB* 324 MG TAB PO SCH ×2 (08:20→21:58)
[2019-07-03] MEDS: Docusate CAP* 100 MG PO SCH ×3 (08:20→21:58)
[2019-07-03] MEDS: Simethicone TAB* 80 MG TAB.CHEW PO SCH ×4 (08:20→21:58)
--- NOTE | 2019-07-03 12:54 | PTEDU ---
Patient Name: OLU LAWRENCE OLU LAWRENCE selected video: Follow Me Mum: The Monae to Successful to view on 0 07/03/2019 at 12:53:25 PM from [email or web address]
--- NOTE | 2019-07-03 12:55 | PTEDU ---
Patient Name: OLU LAWRENCE OLU LAWRENCE selected video: Follow Me Mum: The Monae to Successful to view on 0 07/03/2019 at 12:54:10 PM from [email or web address]
--- NOTE | 2019-07-03 13:00 | PTEDU ---
Patient Name: OLU LAWRENCE OLU LAWRENCE selected video: Follow Me Mum: The Monae to Successful to view on 0 07/03/2019 at 12:59:52 PM from [email or web address]
[2019-07-03] MEDS: Acetaminophen TAB* 325 MG PO PRN ×2 (18:21→21:59)
[2019-07-04] MEDS: Ibuprofen TAB* 600 MG PO PRN (03:56)
[2019-07-04] MEDS: Acetaminophen TAB* 325 MG PO PRN (03:57)
[2019-07-04 08:36] VITALS: BP 110/64
[2019-07-04] MEDS: Ferrous Gluconate TAB* 324 MG TAB PO SCH (09:11)
[2019-07-04] MEDS: Simethicone TAB* 80 MG TAB.CHEW PO SCH (09:11)
[2019-07-04] MEDS: Docusate CAP* 100 MG PO SCH (09:12)
== END 2019-07-04 10:30 | disposition home or self-care (01) | DRG 540 ==
LOC: MCHOB 05:59
PROVIDERS: ADMIT Obstetrics & Gynecology; ATTEND Obstetrics & Gynecology
PROC: 10D00Z1 Extraction of Products of Conception, Low, Open Approach (ICD-10-PCS; principal; 2019-07-01 07:45)
DX: O44.23 Partial placenta previa NOS or without hemorrhage, third trimester (principal); O90.81 Anemia of the puerperium; D64.9 Anemia, unspecified; Z3A.37 37 weeks gestation of pregnancy; Z37.0 Single live birth
CPT/HCPCS: 36415; 80307; 85025; 90686; 90707; A9270-GY; G0480; J0694; J1240; J1885; J2405; J2590; J3490